=== PATIENT | female | born 1935 | race Caucasian/White ===

== ENCOUNTER 2016-08-28 11:19 | Outpatient (CLI) | payer MEDICARE, OTHER | END 2016-08-28 11:20 | disposition home or self-care (01) | DX: I48.91 Unspecified atrial fibrillation (principal) ==

== ENCOUNTER 2016-09-13 12:59 | Outpatient (CLI) | payer MEDICARE, OTHER | END 2016-09-13 13:00 | disposition home or self-care (01) | DX: I48.91 Unspecified atrial fibrillation (principal) ==

== ENCOUNTER 2016-09-28 11:25 | Outpatient (CLI) | payer MEDICARE, OTHER | END 2016-09-28 11:26 | disposition home or self-care (01) | DX: I48.91 Unspecified atrial fibrillation (principal) ==

== ENCOUNTER 2016-11-06 14:56 | Outpatient (CLI) | payer MEDICARE, OTHER | END 2016-11-06 14:57 | disposition home or self-care (01) | DX: I48.91 Unspecified atrial fibrillation (principal) ==

== ENCOUNTER 2016-11-29 09:37 | Outpatient (CLI) | payer MEDICARE, OTHER ==
--- NOTE | 2016-11-30 17:14 | Mammography Report ---
DIGITAL SCREENING MAMMOGRAM: 11/29/2016 CLINICAL INDICATION: An 81-year-old with history of benign left breast biopsy for screening. COMPARISON: 09/2015, 06/2014, 06/2013, 02/2011, 12/2009, 08/2008, 04/2007 TECHNIQUE: Routine CC and MLO projections were obtained of the breasts. FINDINGS: The breasts again demonstrate scattered fibroglandular densities bilaterally. Post biopsy changes in the left breast are stable. Coarse and punctate, typically benign calcifications are pre sent. No suspicious masses, clustered microcalcifications, or regions of architectural distortion ar e identified. IMPRESSION: BENIGN FINDINGS. RECOMMENDATION: Routine annual screening unless otherwise clinically indicated. BIRADS CATEGORY 2 - BENIGN FINDINGS. STANDARD QUALIFYING STATEMENTS 1. This examination was reviewed with the aid of Computer-Aided Detection (CAD). 2. A negative or benign imaging report should not delay biopsy if clinically suspicious findings are present. Consider surgical consultation if warranted. More than 5% of cancers are not identified by i maging. 3. Dense breasts may obscure an underlying neoplasm. JOB #: [id number] EXT JOB #:[id number]
== END 2016-11-29 09:38 | disposition home or self-care (01) ==
LOC: DI 09:37
PROVIDERS: ATTEND Nurse Practitioner Family
DX: Z12.31 Encounter for screening mammogram for malignant neoplasm of breast (principal)
CPT/HCPCS: 77067

== ENCOUNTER 2016-11-29 09:40 | Outpatient (CLI) | payer MEDICARE, OTHER ==
--- NOTE | 2016-11-29 15:19 | DEXA Report ---
DEXA SCAN: 11/29/2016 CLINICAL INDICATION: Postmenopausal. TECHNIQUE: Dual energy x-ray absorptiometry (DXA) was performed on a [employer] system. Regions measured are the AP spine, femoral neck, and, if needed, forearm. COMPARISON: None. In accordance with the International Society for Clinical Densitometry (ISCD) guidelines, data from previous exams may be reanalyzed using current recommendations and techniques. This is done to allow a more accurate basis for comparison with the current study. FINDINGS: The data for the lumbar spine is as follows: REGION BMD (g/cm/cm) T-SCORE Z-SCORE L1 1.452 2.7 3.9 L2 1.720 4.3 5.5 L3 1.964 6.4 7.6 L4 1.823 5.2 6.4 TOTAL 1.754 4.8 6.0 NOTE: All evaluable vertebrae are used for classification. The data for the hip is as follows: REGION BMD (g/cm/cm) T-SCORE Z-SCORE Neck 0.916 -0.9 0.9 TOTAL 1.026 0.1 1.8 NOTE: The femoral neck or total proximal femur, whichever is lowest, is used for classification. * Denotes significant change at the 95% confidence level. Denotes dissimilar scan types or analysis methods . IMPRESSION: THE WHO CLASSIFICATION BASED ON THE INTERNATIONAL REFERENCE STANDARD IS NORMAL. THE FRACTURE RISK IS NOT INCREASED. RECOMMENDATION: Patients with diagnosis of osteoporosis or osteopenia should have regular bone mineral density assessment. For those eligible for Medicare, routine testing is allowed once every 2 years. Testing frequency can be increased for patients who have rapidly progressing disease or for those who are receiving medical therapy to restore bone mass. COMMENT: World Health Organization (WHO) definitions for osteoporosis and osteopenia: NORMAL BMD: T-score at -1.0 or higher, fracture risk is low. OSTEOPENIA BMD: T-score between -1.0 and -2.5, fracture risk is increased. OSTEOPOROSIS BMD: T-score at -2.5 or lower, fracture risk high. National Osteoporosis Foundation recommends: 1. Obtain adequate dietary calcium (at least 1200 mg per day) and vitamin D (400 -800 international units per day). 2. Participate, as appropriate, in regular weightbearing and muscle- strengthening exercise. 3. Avoid tobacco use and reduce alcohol and caffeine intake. 4. For more detailed information see the website at www.NOF.org. MTDD
== END 2016-11-29 09:41 | disposition home or self-care (01) ==
LOC: DI 09:40
PROVIDERS: ATTEND Nurse Practitioner Family
DX: N95.8 Other specified menopausal and perimenopausal disorders (principal)
CPT/HCPCS: 77080

== ENCOUNTER 2016-12-18 14:59 | Outpatient (CLI) | payer MEDICARE, OTHER | END 2016-12-18 15:00 | disposition home or self-care (01) | LOC: LAB.F 14:59 | PROVIDERS: ATTEND Family Medicine | DX: I48.91 Unspecified atrial fibrillation (principal) | CPT/HCPCS: 85610 ==

== ENCOUNTER 2016-12-21 11:25 | Outpatient (CLI) | payer MEDICARE, OTHER | END 2016-12-21 11:26 | disposition home or self-care (01) | LOC: LAB.F 11:25 | PROVIDERS: ATTEND Family Medicine | DX: I48.91 Unspecified atrial fibrillation (principal) | CPT/HCPCS: 85610 ==

== ENCOUNTER 2017-01-01 14:45 | Outpatient (CLI) | payer MEDICARE, OTHER | END 2017-01-01 14:46 | disposition home or self-care (01) | LOC: LAB.F 14:45 | PROVIDERS: ATTEND Family Medicine | DX: I48.91 Unspecified atrial fibrillation (principal) | CPT/HCPCS: 85610 ==

== ENCOUNTER 2017-01-14 11:13 | Outpatient (CLI) | payer MEDICARE, OTHER | END 2017-01-14 11:14 | disposition home or self-care (01) | LOC: LAB.F 11:13 | PROVIDERS: ATTEND Family Medicine | DX: I48.91 Unspecified atrial fibrillation (principal) | CPT/HCPCS: 85610 ==

== ENCOUNTER 2017-01-24 08:00 | Outpatient (CLI) | payer MEDICARE, OTHER | END 2017-01-24 08:01 | LOC: LAB.F 08:00 | PROVIDERS: ATTEND Family Medicine | DX: I48.91 Unspecified atrial fibrillation (principal) | CPT/HCPCS: 85610 ==

== ENCOUNTER 2017-02-14 10:04 | Outpatient (CLI) | payer MEDICARE, OTHER ==
[2017-02-14 18:21] LABS: ALBUMIN/GLOBULIN RATIO 1.3 (1.0-2.2); BILIRUBIN,TOTAL 0.5 mg/dL (0.2-1.0); BUN - BLOOD UREA NITROGEN 28 mg/dL (6-20); CALCIUM 9.4 mg/dL (8.5-10.3); CARBON DIOXIDE - CO2 25 mmol/L (21-32); CHLORIDE 104 mmol/L (101-111); CHOL/HDL RATIO 3.1 (<4.4); CHOLESTEROL 118 mg/dL; GFR - MDRD 53 (>89); GLUCOSE 129 mg/dL (70-100); HDL CHOLESTEROL 38 mg/dL; LDL/HDL RATIO 1.3 (<4.4); POTASSIUM 4.1 mmol/L (3.5-5.0); SODIUM 138 mmol/L (135-145); TRIGLYCERIDES 148 mg/dL; VLDL CHOLESTEROL 30 mg/dL
== END 2017-02-14 10:05 | disposition home or self-care (01) ==
LOC: LAB.F 10:04
PROVIDERS: ATTEND Internal Medicine Cardiovascular Disease
DX: I48.91 Unspecified atrial fibrillation (principal); E78.00 Pure hypercholesterolemia, unspecified; R00.2 Palpitations; I48.0 Paroxysmal atrial fibrillation; I11.9 Hypertensive heart disease without heart failure; I77.9 Disorder of arteries and arterioles, unspecified; G47.33 Obstructive sleep apnea (adult) (pediatric)
CPT/HCPCS: 36415; 80053; 80061; 85610

== ENCOUNTER 2017-02-14 15:21 | Outpatient (CLI) | payer MEDICARE, OTHER ==
--- NOTE | 2017-02-14 18:18 | Ultrasound Report ---
EXAM: CAROTID DOPPLER ULTRASOUND EXAM DATE: 02/14/2017 05:01 PM. CLINICAL HISTORY: Known carotid artery disease. No current symptoms. COMPARISON: 08/18/2011. TECHNIQUE: Real-time sonographic vascular imaging was performed by the bench molder apprentice through the [employer] d arterial system with a linear transducer utilizing color-flow, Doppler flow and spectral analysis. Multiple textile machinery sales representative static images were saved for review. FINDINGS: No focal soft tissue abnormalities are noted. Both vertebral arteries are antegrade in flow. Limited evaluation of the carotid arteries due to high bifurcation bilaterally. Atheromatous calcified and noncalcified plaques are present in the right carotid bulb and extending i nto the proximal right internal carotid artery. Elevated velocities with mild spectral broadening is noted in the proximal right internal carotid artery. The velocity measurements suggest a stenosis of 50-69%. Right carotid artery is ectatic distally. Atheromatous calcified and noncalcified plaques are present in the left carotid bulb and extending in to the proximal left internal carotid artery. Atheromatous disease is also present in the distal left common carotid artery. Focal narrowing and turbulent flow with spectral broadening is noted with sig nificantly elevated velocities at the proximal left internal carotid artery just beyond the bulb. The combination of findings suggests a stenosis of greater than 70%. Spectral waveform analysis as below. Right: RCCA Prox: PSV 78 cm/sec. RCCA Dist: PSV 67 cm/sec, EDV 8 cm/sec. RECA: PSV 169 cm/sec. R Bulb: PSV 132 cm/sec, EDV 26 cm/sec, ICA/CCA ratio 1.97 . MICKY Prox: PSV 185 cm/sec, EDV 23 cm/sec, ICA/CCA ratio 2.8 . MICKY Mid: PSV 114 cm/sec, EDV 19 cm/sec, ICA/CCA ratio 1.70 . MICKY Dist: PSV 69 cm/sec, EDV 14 cm/sec, ICA/CCA ratio 1.03 . RVA: PSV 80 cm/sec. RVA flow direction: Antegrade. Left: LCCA Prox: PSV 99 cm/sec. LCCA Dist: PSV 101 cm/sec, EDV 20 cm/sec. LECA: PSV 99 cm/sec. L Bulb: PSV 116 cm/sec, EDV 25 cm/sec, ICA/CCA ratio 1.15 . LICA Prox: PSV 329 cm/sec, EDV 96 cm/sec, ICA/CCA ratio 3.26 . LICA Mid: PSV 207 cm/sec, EDV 53 cm/sec, ICA/CCA ratio 2.05 . LICA Dist: PSV 142 cm/sec, EDV 32 cm/sec, ICA/CCA ratio 1.41 . LVA: PSV 72 cm/sec. LVA flow direction: Antegrade. Other: None. IMPRESSION: 1. Stenosis of greater than 70% in the proximal left internal carotid artery. 2. 50-69% stenosis in the right proximal internal carotid artery. Velocities may be elevated due to t he stenosis of the left carotid system. This may result in overestimation of stenosis of the right in ternal carotid artery. 3. Both vertebral arteries are antegrade in flow. Validated velocity measurements with angiographic measurements and velocity criteria are extrapolated from diameter data as defined by the Society of Radiologists in Ultrasound Consensus Conference Radi ology 2003; 229;340-346. [facility] Referring Provider Line: [phone] SITE ID: [id number]
== END 2017-02-14 15:22 | disposition home or self-care (01) ==
LOC: DI 15:21
PROVIDERS: ATTEND Internal Medicine Cardiovascular Disease
DX: I65.23 Occlusion and stenosis of bilateral carotid arteries (principal); R00.2 Palpitations; I48.0 Paroxysmal atrial fibrillation; I11.9 Hypertensive heart disease without heart failure; I77.9 Disorder of arteries and arterioles, unspecified; E78.00 Pure hypercholesterolemia, unspecified; G47.33 Obstructive sleep apnea (adult) (pediatric)
CPT/HCPCS: 36415; 80053; 80061; 93880

== ENCOUNTER 2017-02-25 08:00 | Outpatient (CLI) | payer MEDICARE, OTHER | END 2017-02-25 08:01 | disposition home or self-care (01) | LOC: LAB.F 08:00 | PROVIDERS: ATTEND Family Medicine | DX: I48.91 Unspecified atrial fibrillation (principal) | CPT/HCPCS: 85610 ==

== ENCOUNTER 2017-03-19 14:30 | Outpatient (CLI) | payer MEDICARE, OTHER | END 2017-03-19 14:31 | disposition home or self-care (01) | LOC: LAB.F 14:30 | PROVIDERS: ATTEND Family Medicine | DX: I48.91 Unspecified atrial fibrillation (principal) | CPT/HCPCS: 85610 ==

== ENCOUNTER 2017-04-17 14:07 | Outpatient (CLI) | payer MEDICARE, OTHER | END 2017-04-17 14:08 | disposition home or self-care (01) | LOC: LAB.F 14:07 | PROVIDERS: ATTEND Family Medicine | DX: I48.91 Unspecified atrial fibrillation (principal) | CPT/HCPCS: 85610 ==

== ENCOUNTER 2017-05-31 08:00 | Outpatient (CLI) | payer MEDICARE, OTHER | END 2017-05-31 08:01 | disposition home or self-care (01) | LOC: LAB.F 08:00 | PROVIDERS: ATTEND Family Medicine | DX: I48.91 Unspecified atrial fibrillation (principal) | CPT/HCPCS: 85610 ==

== ENCOUNTER 2017-08-13 14:31 | Outpatient (CLI) | payer MEDICARE, OTHER | END 2017-08-13 14:32 | disposition home or self-care (01) | LOC: LAB.F 14:31 | PROVIDERS: ATTEND Family Medicine | DX: I48.91 Unspecified atrial fibrillation (principal) | CPT/HCPCS: 85610 ==

== ENCOUNTER 2017-09-17 15:57 | Outpatient (CLI) | payer MEDICARE, OTHER | END 2017-09-17 15:58 | disposition home or self-care (01) | LOC: LAB.F 15:57 | PROVIDERS: ATTEND Family Medicine | DX: I48.91 Unspecified atrial fibrillation (principal) | CPT/HCPCS: 85610 ==

== ENCOUNTER 2017-10-09 13:36 | Outpatient (CLI) | payer MEDICARE, OTHER | END 2017-10-09 13:37 | disposition home or self-care (01) | LOC: LAB.F 13:36 | PROVIDERS: ATTEND Family Medicine | DX: I48.91 Unspecified atrial fibrillation (principal) | CPT/HCPCS: 85610 ==

== ENCOUNTER 2017-11-05 14:20 | Outpatient (CLI) | payer MEDICARE, OTHER | END 2017-11-05 14:21 | disposition home or self-care (01) | LOC: LAB.F 14:20 | PROVIDERS: ATTEND Family Medicine | DX: I48.91 Unspecified atrial fibrillation (principal) | CPT/HCPCS: 85610 ==

== ENCOUNTER 2017-12-11 13:37 | Outpatient (CLI) | payer MEDICARE, OTHER | END 2017-12-11 13:38 | disposition home or self-care (01) | LOC: LAB.F 13:37 | PROVIDERS: ATTEND Family Medicine | DX: I48.91 Unspecified atrial fibrillation (principal) | CPT/HCPCS: 85610 ==

== ENCOUNTER 2017-12-27 08:45 | Outpatient (CLI) | payer MEDICARE, OTHER | END 2017-12-27 08:46 | disposition home or self-care (01) | LOC: LAB.F 08:45 | PROVIDERS: ATTEND Family Medicine | DX: I48.91 Unspecified atrial fibrillation (principal) | CPT/HCPCS: 85610 ==

== ENCOUNTER 2018-01-01 09:59 | Outpatient (CLI) | payer MEDICARE, OTHER ==
--- NOTE | 2018-01-03 15:18 | Mammography Report ---
Procedure Date: 01/01/2018 Accession Number: [id number] / [id number] Procedure: MGS - Screening Mammo Dig Bilat CPT Code: FULL RESULT: EXAM: Screening Mammo Dig Bilat DATE: 01/01/2018 10:17 AM CLINICAL HISTORY: 82-year-old with history of benign cyst excision for screening TECHNIQUE: Bilateral CC and MLO views were obtained. COMPARISON: 11/29/2016, 10/14/2015, 07/19/2014, 06/30/2013, 02/19/2011, 01/16/2010 FINDINGS: The breasts demonstrate scattered fibroglandular densities bilaterally. Coarse and punctate, typically benign calcifications are present. No suspicious masses, clustered microcalcifications, or regions of architectural distortion are identified. IMPRESSION: Benign findings RECOMMENDATION: Routine annual screening unless otherwise clinically indicated. BIRADS CATEGORY 2: Benign findings STANDARD QUALIFYING STATEMENTS: 1. This examination was reviewed with the aid of Computer-Aided Detection (CAD). 2. A negative or benign imaging report should not delay biopsy if clinically suspicious findings are present. Consider surgical consultation if warrented. More than 5% of cancers are not identified by imaging. 3. Dense breasts may obscure an underlying neoplasm.
== END 2018-01-01 10:00 | disposition home or self-care (01) ==
LOC: DI.S 09:59
PROVIDERS: ATTEND Family Medicine
DX: Z12.31 Encounter for screening mammogram for malignant neoplasm of breast (principal)
CPT/HCPCS: 77067

== ENCOUNTER 2018-01-10 10:15 | Outpatient (CLI) | END 2018-01-10 10:16 | disposition home or self-care (01) ==

== ENCOUNTER 2018-01-14 14:06 | Outpatient (CLI) | payer MEDICARE, OTHER ==
[2018-01-14 17:32] LABS: INR 1.8 (0.8-1.2); PT - PROTHROMBIN TIME 20.3 secs (9.9-12.6)
[2018-01-14 17:50] LABS: BASOPHILS # (AUTO) 0.1 10^3/uL (0.0-0.1); BASOPHILS % (AUTO) 1.1 %; EOSINOPHILS # (AUTO) 0.1 10^3/uL (0.0-0.7); EOSINOPHILS % (AUTO) 1.5 %; HGB - HEMOGLOBIN 11.3 g/dL (12.0-16.0); LYMPHOCYTES # (AUTO) 1.6 10^3/uL (1.5-3.5); LYMPHOCYTES % (AUTO) 18.4 %; MEAN CORPUSCULAR HEMOGLOBIN 24.3 pg (27.0-31.0); MEAN CORPUSCULAR HGB CONC 31.5 g/dL (32.0-36.0); MEAN PLATELET VOLUME 9.2 fL (7.9-10.8); MONOCYTES # (AUTO) 0.5 10^3/uL (0.0-1.0); MONOCYTES % (AUTO) 5.4 %; NEUTROPHILS # (AUTO) 6.3 10^3/uL (1.5-6.6); NEUTROPHILS % (AUTO) 73.6 %; PLT - PLATELET COUNT 266 10^3/uL (130-450); RED BLOOD COUNT 4.65 10^6/uL (4.20-5.40); RED CELL DISTRIBUTION WIDTH 29.7 % (12.0-15.0); WHITE BLOOD COUNT 8.6 x10^3/uL (4.8-10.8)
[2018-01-14 18:03] LABS: % IRON SATURATION 8 % (20-50); IRON 30 ug/dL (28-170); TOTAL IRON BINDING CAPACITY 368 ug/dL (250-450); TRANSFERRIN 263 mg/dL (192-382)
[2018-01-14 19:30] LABS: PLATELET ESTIMATE, MANUAL NORMAL (130-450,000) (NORMAL); PLATELET MORPHOLOGY 1+ LARGE PLATELETS (NORMAL)
== END 2018-01-14 14:07 | disposition home or self-care (01) ==
LOC: LAB.F 14:06
PROVIDERS: ATTEND Family Medicine
DX: D64.9 Anemia, unspecified (principal); Z79.01 Long term (current) use of anticoagulants
CPT/HCPCS: 36415; 82728; 83540; 84466; 85025; 85610

== ENCOUNTER 2018-02-07 14:59 | Outpatient (CLI) | payer MEDICARE, OTHER | END 2018-02-07 15:00 | disposition home or self-care (01) | LOC: LAB.F 14:59 | PROVIDERS: ATTEND Family Medicine | DX: I48.91 Unspecified atrial fibrillation (principal) | CPT/HCPCS: 85610 ==

== ENCOUNTER 2018-02-21 15:27 | Outpatient (CLI) | payer MEDICARE, OTHER ==
[2018-02-21 17:32] LABS: BASOPHILS # (AUTO) 0.1 10^3/uL (0.0-0.1); BASOPHILS % (AUTO) 1.1 %; EOSINOPHILS # (AUTO) 0.1 10^3/uL (0.0-0.7); EOSINOPHILS % (AUTO) 1.1 %; HGB - HEMOGLOBIN 12.4 g/dL (12.0-16.0); LYMPHOCYTES # (AUTO) 1.2 10^3/uL (1.5-3.5); LYMPHOCYTES % (AUTO) 19.1 %; MEAN CORPUSCULAR HEMOGLOBIN 27.1 pg (27.0-31.0); MEAN CORPUSCULAR HGB CONC 32.9 g/dL (32.0-36.0); MEAN CORPUSCULAR VOLUME 82.5 fL (81.0-99.0); MONOCYTES # (AUTO) 0.4 10^3/uL (0.0-1.0); MONOCYTES % (AUTO) 5.8 %; NEUTROPHILS # (AUTO) 4.6 10^3/uL (1.5-6.6); NEUTROPHILS % (AUTO) 72.9 %; PLT - PLATELET COUNT 247 10^3/uL (130-450); RED BLOOD COUNT 4.57 10^6/uL (4.20-5.40); RED CELL DISTRIBUTION WIDTH 22.4 % (12.0-15.0); WHITE BLOOD COUNT 6.3 x10^3/uL (4.8-10.8)
[2018-02-21 18:12] LABS: PLATELET ESTIMATE, MANUAL NORMAL (130-450,000) (NORMAL); PLATELET MORPHOLOGY NORMAL APPEARANCE (NORMAL); RBC MORPHOLOGY (MULTIPLE) 2+ ANISOCYTOSIS (NORMAL)
== END 2018-02-21 15:28 | disposition home or self-care (01) ==
LOC: LAB.F 15:27
PROVIDERS: ATTEND Internal Medicine
DX: D64.9 Anemia, unspecified (principal); D50.9 Iron deficiency anemia, unspecified; I48.91 Unspecified atrial fibrillation; I12.9 Hypertensive chronic kidney disease with stage 1 through stage 4 chronic kidney disease, or unspecified chronic kidney disease; N18.9 Chronic kidney disease, unspecified; E78.5 Hyperlipidemia, unspecified
CPT/HCPCS: 36415; 80051; 82728; 83540; 84466; 85025; 85610

== ENCOUNTER 2018-02-27 08:50 | Day surgery (SDC) | payer MEDICARE, OTHER ==
[~2018-02-27 08:50] MED LIST: MIDAZOLAM 2 MG/2 ML VIAL IVP ONE
[2018-02-27] MEDS ORDERED: CYCLOPENTOLATE 1% OPHTH DROPS 2 ML ONE (09:00)
[2018-02-27] MEDS ORDERED: KETOROLAC 0.45% OPHTH DROPS ONE (09:00)
[2018-02-27] MEDS ORDERED: PROPARACAINE 0.5% OPHTH DROPS 15 ML ONE (09:00)
[2018-02-27] MEDS ORDERED: PHENYLEPHRINE 2.5% OPHTH 2 ML DROPS ONE (09:00)
[2018-02-27] MEDS ORDERED: LACTATED RINGERS 500 ML IV ONE ×2 (09:08→10:50)
[2018-02-27] MEDS ORDERED: LACTATED RINGERS 1,000 ML IV ONE (09:08)
[2018-02-27] MEDS ORDERED: KETOROLAC 0.45% OPHTH DROPS RIGHTEYE ONE (09:29)
[2018-02-27] MEDS ORDERED: CYCLOPENTOLATE 1% OPHTH DROPS 2 ML RIGHTEYE ONE (09:29)
[2018-02-27] MEDS ORDERED: PROPARACAINE 0.5% OPHTH DROPS 15 ML RIGHTEYE ONE ×2 (09:29→10:41)
[2018-02-27] MEDS ORDERED: PHENYLEPHRINE 2.5% OPHTH 2 ML DROPS RIGHTEYE ONE (09:29)
--- NOTE | 2018-02-27 09:49 | ANESTHESIA ---
Pre-Anesthesia VS, & Labs - Diagnosis senile combined cataract, right - Procedure Right cataract extraction with intraocular lens Vital Signs: Temp Pulse Resp BP Pulse Ox 36.3 C L 16 157/69 H 99 02/27/18 09:20 02/27/18 09:20 02/27/18 09:20 02/27/18 09:20 Height 5 ft 5 in Weight (kg) 85.1 kg - NPO Last Fluid Intake: 715 Last Food Intake: none today - Is Patient ?: Not Applicable Home Medications and Allergies Home Medications: Ambulatory Orders Medication Instructions Recorded Confirmed Aspirin [Adult Aspirin] 81 mg PO DAILY 02/26/18 02/26/18 Atorvastatin [Lipitor] mg PO DAILY 02/26/18 Diclofenac Sodium [Voltaren] 1 02/26/18 Esomeprazole Magnesium [Nexium] mg PO DAILY 02/26/18 Furosemide [Lasix] mg PO DAILY 02/26/18 HYDROcod/ACETAM 5/325 [[place] 5/325] tab PO DAILY PRN 02/26/18 Lisinopril mg PO DAILY 02/26/18 Metoprolol Succinate mg PO DAILY 02/26/18 Warfarin [Coumadin] mg PO DAILY 02/26/18 Zolpidem [Ambien] mg PO DAILY PRN 02/26/18 diltiaZEM [Cardizem] mg PO DAILY 02/26/18 Allergies/Adverse Reactions: Allergies Allergy/AdvReac Type Severity Reaction Status Date / Time No Known Drug Allergies Allergy Verified 02/26/18 13:24 Anes History & Medical History - Anesthetic History Anesthesia Complications: reports: Post-Operative Nausea/Vomiting - Medical History Cardiovascular: reports: Hypertension, High cholesterol, Atrial fibrillation, Other. denies: Angina Pulmonary: reports: None Gastrointestinal: reports: GERD, GI bleed, Ulcers, Diverticulitis, Cholelithiasis Urinary: reports: Renal insuffiency, Other Neuro: denies: CVA Musculoskeletal: reports: Osteoarthritis, Fibromyalgia, Chronic back pain Endocrine/Autoimmune: reports: None - Surgical History General: Cholecystectomy, Other Gynecologic: Hysterectomy Orthopedic: Other (hand surgery) Exam General: Alert Dental: WNL Mouth Openin Fingerbreadth Neck Mobility: Reduced Mallampati classification: II Thyromental Distance: greater than 6 cm Respiratory: Lungs clear Cardiovascular: Regular rate, Normal S1, Normal S2 Neurological: Other (ambulates with walker) Mental/Cognitive Status: Alert/Oriented X3 Cognitive Status: Within normal limits Plan Anesthesia Type: MAC Consent for Procedure(s) Verified and Reviewed: No Code Status: Attempt Resuscitation ASA classification: 3-Severe systemic disease Is this case an emergency?: No
[2018-02-27] MEDS ORDERED: BRIMONIDINE 0.2% OPHTH DROPS 5 ML OPTH ONE (10:39)
[2018-02-27] MEDS ORDERED: EPINEPHrine 1 MG/ML AMP IVP ONE (10:39)
[2018-02-27] MEDS ORDERED: CHONDR SULF/HYALURONATE SYRINGE IO ONE (10:40)
[2018-02-27] MEDS ORDERED: TIMOLOL 0.5% OPHTH DROPS OPTH ONE (10:40)
[2018-02-27] MEDS ORDERED: TRIAMCIN/MOXIFLOX/VANCO 1 ML VIAL IO ONE (10:40)
[2018-02-27] MEDS ORDERED: BSS/LIDOCAINE/EPINEPHRINE 1 ML SYRINGE IO ONE (10:40)
--- NOTE | 2018-02-27 11:05 | OPERATIVE REPORT ---
DATE OF SERVICE: 02/27/2018 Physician: Vishal Ya MD PREOPERATIVE DIAGNOSIS: Visually significant cataract, right eye. This was her first cataract surge ry. POSTOPERATIVE DIAGNOSIS: Visually significant cataract, right eye. This was her first cataract surg ginny. NAME OF PROCEDURE: Phacoemulsification with posterior chamber intraocular lens implant, right eye. SURGEON: Vishal Ya MD ANESTHESIA: Monitored anesthesia care. COMPLICATIONS: None. OPERATIVE INDICATIONS: This is an 83-year-old woman with progressive vision loss in the right eye du e to 2+ nuclear sclerotic, 2+ cortical and vacuole cataract. Best corrected visual acuity was 20/40, with glare to 20/80 in the right eye. Indications for surgery were overall decrease in vision, difficulty reading, difficulty seeing words, closed captions and games scores on TV. She was consented at length concerning risks and benefits o f cataract surgery, after which she expressed a desire to proceed with surgery. OPERATIVE PROCEDURE: The patient was taken to the OR #3 and placed under monitored anesthesia care. A surgical timeout was conducted confirming correct patient, correct procedure, and correct surgical site. She was given topical anesthesia, and then prepped and draped in the usual sterile fashion. The eye was entered at the 12 and 9 o'clock position. Intracameral Shugarcaine was injected into the anterior chamber, followed by Viscoat. A continuous-tear curvilinear capsulorrhexis was performed. The nucleus was hydrodissected and phacoemulsified. The cortex was evacuated using automated infusi on and aspiration. Provisc was injected in the capsular bag, and a 21.0 diopter intraocular lens ins erted in the bag. Approximately 0.8 mixture of triamcinolone, moxifloxacin, and vancomycin was injec ashley subconjunctivally in the superior quadrant for infection and inflammation prophylaxis. I and A w as used to evacuate the viscoelastic material. His eye was inflated to physiologic pressure using ba lanced salt solution, and found to be watertight. The patient was taken from the operating room in g ood condition, and given postop instructions. TD: 02/27/2018 10:58
[2018-02-27 11:17] VITALS: BP 136/46
== END 2018-02-27 08:51 | disposition home or self-care (01) ==
LOC: SDS 08:50
PROVIDERS: ATTEND Ophthalmology
PROC: 08RJ3JZ Replacement of Right Lens with Synthetic Substitute, Percutaneous Approach (ICD-10-PCS; principal; 2018-02-27 10:30)
DX: H25.811 Combined forms of age-related cataract, right eye (principal); I48.91 Unspecified atrial fibrillation; I10 Essential (primary) hypertension
CPT/HCPCS: 66984; A9270; J3490; V2632

== ENCOUNTER 2018-03-11 13:36 | Outpatient (CLI) | payer MEDICARE, OTHER | END 2018-03-11 13:37 | disposition home or self-care (01) | LOC: LAB.F 13:36 | PROVIDERS: ATTEND Family Medicine | DX: I48.91 Unspecified atrial fibrillation (principal) | CPT/HCPCS: 85610 ==

== ENCOUNTER 2018-04-02 15:58 | Outpatient (CLI) | payer MEDICARE, OTHER | END 2018-04-02 15:59 | disposition home or self-care (01) | LOC: LAB.F 15:58 | PROVIDERS: ATTEND Family Medicine | DX: I48.91 Unspecified atrial fibrillation (principal) | CPT/HCPCS: 85610 ==

== ENCOUNTER 2018-05-14 14:31 | Outpatient (CLI) | payer MEDICARE, OTHER | END 2018-05-14 14:32 | disposition home or self-care (01) | LOC: LAB.F 14:31 | PROVIDERS: ATTEND Family Medicine | DX: I48.91 Unspecified atrial fibrillation (principal) | CPT/HCPCS: 85610 ==

== ENCOUNTER 2018-05-27 14:23 | Outpatient (CLI) | payer MEDICARE, OTHER ==
[2018-05-27 17:45] LABS: BASOPHILS % (AUTO) 0.6 %; EOSINOPHILS # (AUTO) 0.1 10^3/uL (0.0-0.7); LYMPHOCYTES # (AUTO) 1.6 10^3/uL (1.5-3.5); LYMPHOCYTES % (AUTO) 21.3 %; MEAN CORPUSCULAR HEMOGLOBIN 29.4 pg (27.0-31.0); MEAN CORPUSCULAR HGB CONC 33.5 g/dL (32.0-36.0); MEAN CORPUSCULAR VOLUME 87.8 fL (81.0-99.0); MEAN PLATELET VOLUME 9.1 fL (7.9-10.8); MONOCYTES # (AUTO) 0.7 10^3/uL (0.0-1.0); MONOCYTES % (AUTO) 8.6 %; NEUTROPHILS # (AUTO) 5.3 10^3/uL (1.5-6.6); NEUTROPHILS % (AUTO) 68.5 %; PLT - PLATELET COUNT 223 10^3/uL (130-450); RED BLOOD COUNT 4.75 10^6/uL (4.20-5.40); RED CELL DISTRIBUTION WIDTH 15.2 % (12.0-15.0); WHITE BLOOD COUNT 7.7 x10^3/uL (4.8-10.8)
[2018-05-27 18:23] LABS: CALCIUM 9.4 mg/dL (8.5-10.3); CREATININE 0.9 mg/dL (0.4-1.0)
== END 2018-05-27 14:24 | disposition home or self-care (01) ==
LOC: LAB.F 14:23
PROVIDERS: ATTEND Internal Medicine Cardiovascular Disease
DX: I48.0 Paroxysmal atrial fibrillation (principal)
CPT/HCPCS: 36415; 80048; 85025

== ENCOUNTER 2018-06-19 10:39 | Outpatient (CLI) | payer MEDICARE, OTHER ==
[2018-06-19 18:06] LABS: CALCIUM 9.4 mg/dL (8.5-10.3); CREATININE 0.8 mg/dL (0.4-1.0)
== END 2018-06-19 10:40 | disposition home or self-care (01) ==
LOC: LAB.F 10:39
PROVIDERS: ATTEND Family Medicine
DX: I48.91 Unspecified atrial fibrillation (principal); I10 Essential (primary) hypertension
CPT/HCPCS: 36415; 80048; 85610

== ENCOUNTER 2018-07-28 13:56 | Outpatient (CLI) | payer MEDICARE, OTHER | END 2018-07-28 13:57 | disposition home or self-care (01) | LOC: LAB.F 13:56 | PROVIDERS: ATTEND Family Medicine | DX: I48.91 Unspecified atrial fibrillation (principal) | CPT/HCPCS: 85610 ==

== ENCOUNTER 2018-10-23 14:00 | Emergency (ER) | payer MEDICARE, OTHER ==
[2018-10-23] MEDS ORDERED: IPRATROPIUM/ALBUTEROL 3 ML NEB INH STA (14:25)
[2018-10-23] MEDS ORDERED: methylPREDNISolone SUCCINATE 125 MG/2 ML VIAL IVP STA (14:25)
--- NOTE | 2018-10-23 14:32 | ED Physician Documentation ---
PD HPI DYSPNEA - Stated complaint Stated Complaint: SOA/COUGH - Chief complaint Chief Complaint: Resp - History obtained from History obtained from: Patient - History of Present Illness Timing - onset: How many days ago (3) Timing - onset during: Rest Timing - duration: Days (3) Timing - details: Gradual onset Pain level max: 0 Pain level now: 0 Inciting event(s): URI Improved by: Rest Worsened by: Exertion, Coughing Associated symptoms: Cough, Wheezing. No: Fever, Chest pain / discomfort, Palpitations, Diaphoresis, Bilateral edema Similar symptoms before: Diagnosis (clinical pneumonia yesterday) Recently seen: Clinic (clinic yesterday for same, started on azithromycin.) Review of Systems Ten Systems: 10 systems reviewed and negative Constitutional: denies: Fever Nose: reports: Rhinorrhea / runny nose, Congestion Cardiac: denies: Chest pain / pressure Respiratory: reports: Cough GI: denies: Vomiting, Diarrhea Skin: denies: Rash Musculoskeletal: denies: Neck pain, Back pain Neurologic: denies: Headache PD PAST MEDICAL HISTORY - Past Medical History Past Medical History: Yes Cardiovascular: Hypertension, Atrial fibrillation Respiratory: Asthma - Present Medications Home Medications: Ambulatory Orders Medication Instructions Recorded Confirmed Aspirin [Adult Aspirin] 81 mg PO DAILY 02/26/18 02/26/18 Atorvastatin [Lipitor] 10 mg PO DAILY 02/26/18 02/27/18 Diclofenac Sodium [Voltaren] 1 gm PO DAILY 02/26/18 02/27/18 Esomeprazole Magnesium [Nexium] 20 mg PO DAILY 02/26/18 02/27/18 Furosemide [Lasix] 20 mg PO DAILY 02/26/18 02/27/18 HYDROcod/ACETAM 5/325 [[place] 5/325] 5 mg PO DAILY PRN 02/26/18 02/27/18 Lisinopril 10 mg PO DAILY 02/26/18 02/27/18 Metoprolol Succinate 25 mg PO DAILY 02/26/18 02/27/18 Warfarin [Coumadin] 5 mg PO DAILY 02/26/18 02/27/18 Zolpidem [Ambien] mg PO DAILY PRN 02/26/18 diltiaZEM [Cardizem] mg PO DAILY 02/26/18 Albuterol Sulf [Ventolin Hfa 1 - 2 puffs INH Q4HR PRN #1 inhaler 10/23/18 Inhaler] predniSONE [Prednisone] 40 mg PO DAILY #10 tablet 10/23/18 - Allergies Allergies/Adverse Reactions: Allergies Allergy/AdvReac Type Severity Reaction Status Date / Time No Known Drug Allergies Allergy Verified 10/23/18 14:24 - Living Situation Living Situation: reports: With family Living Arrangement: reports: At home - Social History Does the pt drink ETOH?: No Does the pt have substance abuse?: No - Family History Family history: reports: Non contributory PD ED PE NORMAL - Vitals Vital signs reviewed: Yes - General General: Alert and oriented X 3, No acute distress, Well developed/nourished - HEENT HEENT: PERRL, Moist mucous membranes - Neck Neck: Supple, no meningeal sign - Cardiac Cardiac: RRR - Respiratory Respiratory: No respiratory distress, Other (Very diminished breath sounds bilaterally with wheezing) - Abdomen Abdomen: Soft, Non tender, Non distended - Derm Derm: Warm and dry, No rash - Extremities Extremities: No edema, No calf tenderness / cord - Neuro Neuro: Alert and oriented X 3 - Psych Psych: Normal mood, Normal affect Results - Vitals Vitals: Vital Signs - 24 hr 10/23/18 10/23/18 10/23/18 14:20 14:27 14:35 Temperature 37.2 C Heart Rate 69 71 Respiratory 19 20 Rate Blood Pressure 173/73 H 161/63 H O2 Saturation 89 L 97 10/23/18 10/23/18 10/23/18 14:54 16:11 16:13 Temperature 37.2 C Heart Rate 66 78 76 Respiratory 14 21 18 Rate Blood Pressure 165/60 H O2 Saturation 98 10/23/18 17:03 Temperature Heart Rate 84 Respiratory 20 Rate Blood Pressure 131/86 H O2 Saturation 94 Oxygen O2 Source Room air - Labs Labs: Laboratory Tests 10/23/18 10/23/18 10/23/18 14:32 14:32 14:32 WBC 7.1 RBC 3.45 L Hgb 9.8 L Hct 28.9 L MCV 83.8 MCH 28.5 MCHC 34.0 RDW 14.8 Plt Count 216 MPV 8.1 Neut # (Auto) 5.7 Lymph # (Auto) 0.5 L Jerome # (Auto) 0.8 Eos # (Auto) 0.0 Baso # (Auto) 0.1 Absolute Nucleated RBC 0.00 Nucleated RBC % 0.0 PT INR Sodium 127 L Potassium 3.7 Chloride 94 L Carbon Dioxide 25 Anion Gap 8.0 BUN 20 Creatinine 0.8 Estimated GFR (MDRD) 69 L Glucose 153 H Lactic Acid 0.8 Calcium 8.6 Total Bilirubin 0.7 AST 37 ALT 23 Alkaline Phosphatase 62 Total Protein 6.6 L Albumin 3.4 Globulin 3.2 Albumin/Globulin Ratio 1.1 Lipase 47 10/23/18 14:32 WBC RBC Hgb Hct MCV MCH MCHC RDW Plt Count MPV Neut # (Auto) Lymph # (Auto) Jerome # (Auto) Eos # (Auto) Baso # (Auto) Absolute Nucleated RBC Nucleated RBC % PT 31.1 H INR 2.8 H Sodium Potassium Chloride Carbon Dioxide Anion Gap BUN Creatinine Estimated GFR (MDRD) Glucose Lactic Acid Calcium Total Bilirubin AST ALT Alkaline Phosphatase Total Protein Albumin Globulin Albumin/Globulin Ratio Lipase - Rads (name of study) cxr Radiology: Prelim report reviewed, EMP read contemporaneously, See rad report (No focal consolidation. ) PD MEDICAL DECISION MAKING - ED course Complexity details: reviewed results, re-evaluated patient, considered differential, d/w patient, d/w family ED course: 83-year-old female with what appears to be a viral upper respiratory infection. She is well-appearing, nontoxic. Was initially hypoxic, but resolved with steroids and nebulizer treatment. Has not been using albuterol at home. Will prescribe an inhaler for her. She does not want to stay in the hospital At this time. Her daughter will stay with her tonight. If she fails to improve or worsens, they will return for further care. We will have her finish the azithromycin that was started by her doctor. We will also prescribe steroids for home. Patient counseled regarding signs and symptoms for which I believe and urgent re-evaluation would be necessary. Patient with good understanding of and agreement to plan and is comfortable going home at this time This document was made in part using voice recognition software. While efforts are made to proofread this document, sound alike and grammatical errors may occur. Departure - Departure Disposition: 01 Home, Self Care Clinical Impression: Asthma exacerbation Qualifiers: Asthma severity: unspecified severity Asthma persistence: unspecified Qualified Code(s): J45.901 - Unspecified asthma with (acute) exacerbation Condition: Good Instructions: ED Reactive Airway Disease Follow-Up: ANGIE DAWKINS MD [Primary Care Provider] - Within 3 Days Prescriptions: Albuterol Sulf [Ventolin Hfa Inhaler] 1 - 2 puffs INH Q4HR PRN #1 inhaler PRN Reason: Shortness Of Air/Wheezing predniSONE [Prednisone] 40 mg PO DAILY #10 tablet Comments: Return if you worsen. This should improve over the next 24 hours. You can finish the antibiotics you started. Discharge Date/Time: 10/23/18 18:25
[2018-10-23 14:50] LABS: BASOPHILS # (AUTO) 0.1 10^3/uL (0.0-0.1); BASOPHILS % (AUTO) 1.1 %; EOSINOPHILS % (AUTO) 0.1 %; HGB - HEMOGLOBIN 9.8 g/dL (12.0-16.0); LYMPHOCYTES # (AUTO) 0.5 10^3/uL (1.5-3.5); LYMPHOCYTES % (AUTO) 7.2 %; MEAN CORPUSCULAR HEMOGLOBIN 28.5 pg (27.0-31.0); MEAN CORPUSCULAR VOLUME 83.8 fL (81.0-99.0); MEAN PLATELET VOLUME 8.1 fL (7.9-10.8); MONOCYTES # (AUTO) 0.8 10^3/uL (0.0-1.0); MONOCYTES % (AUTO) 11.7 %; NEUTROPHILS # (AUTO) 5.7 10^3/uL (1.5-6.6); NEUTROPHILS % (AUTO) 79.9 %; PLT - PLATELET COUNT 216 10^3/uL (130-450); RED BLOOD COUNT 3.45 10^6/uL (4.20-5.40); RED CELL DISTRIBUTION WIDTH 14.8 % (12.0-15.0); WHITE BLOOD COUNT 7.1 x10^3/uL (4.8-10.8)
[2018-10-23 14:57] LABS: ALBUMIN 3.4 g/dL (3.2-5.5); ALBUMIN/GLOBULIN RATIO 1.1 (1.0-2.2); BILIRUBIN,TOTAL 0.7 mg/dL (0.2-1.0); CALCIUM 8.6 mg/dL (8.5-10.3); CREATININE 0.8 mg/dL (0.4-1.0); TOTAL PROTEIN 6.6 g/dL (6.7-8.2)
--- NOTE | 2018-10-23 15:00 | XRAY Report ---
Reason: cough Procedure Date: 10/23/2018 Accession Number: [id number] / [id number] Procedure: XR - Chest 2 View X-Ray CPT Code: 25590 FULL RESULT: EXAM: CHEST RADIOGRAPHY EXAM DATE: 10/23/2018 02:46 PM. CLINICAL HISTORY: Cough. COMPARISON: XR CHEST PA AND LAT 06/21/2009 2:08 PM. TECHNIQUE: 2 views. FINDINGS: Lungs/Pleura: Increased interstitial markings with peribronchial cuffing. No focal consolidation. No pleural effusion. Mediastinum: Heart and mediastinal contours are unremarkable. Other: None. IMPRESSION: 1. No focal consolidation. 2. Increased interstitial markings with parabronchial cuffing are nonspecific but can be seen in the setting of reactive airways disease, bronchitis and viral infection. Findings are new from the prior examination. [facility]
[2018-10-23] MEDS ORDERED: SODIUM CHLORIDE 0.9% 1,000 ML IV ONE (15:14)
[2018-10-23 15:15] LABS: INR 2.8 (0.8-1.2); PT - PROTHROMBIN TIME 31.1 secs (9.9-12.6)
[2018-10-23] MEDS ORDERED: ALBUTEROL NEB 2.5 MG/3 ML INH STA (15:51)
[2018-10-23 17:16] VITALS: BP 131/86
== END 2018-10-23 18:25 | disposition home or self-care (01) ==
LOC: ED 14:00
DX: J45.901 Unspecified asthma with (acute) exacerbation (principal); I48.91 Unspecified atrial fibrillation; I10 Essential (primary) hypertension; Z79.01 Long term (current) use of anticoagulants
CPT/HCPCS: 36415; 71046; 80053; 83605; 83690; 85025; 85610; 94640; 96361; 96374; 99283; 99284

== ENCOUNTER 2018-11-20 15:03 | Outpatient (CLI) | payer MEDICARE, OTHER | END 2018-11-20 15:04 | disposition home or self-care (01) | LOC: LAB.F 15:03 | PROVIDERS: ATTEND Family Medicine | DX: I48.91 Unspecified atrial fibrillation (principal) | CPT/HCPCS: 85610 ==

== ENCOUNTER 2019-01-01 15:44 | Outpatient (CLI) | payer MEDICARE, OTHER | END 2019-01-01 15:45 | disposition home or self-care (01) | LOC: LAB.F 15:44 | PROVIDERS: ATTEND Internal Medicine | DX: I48.91 Unspecified atrial fibrillation (principal) | CPT/HCPCS: 85610 ==

== ENCOUNTER 2019-03-05 15:19 | Outpatient (CLI) | payer MEDICARE, OTHER | END 2019-03-05 15:20 | disposition home or self-care (01) | LOC: LAB.S 15:19 | PROVIDERS: ATTEND Internal Medicine Cardiovascular Disease | DX: I10 Essential (primary) hypertension (principal) | CPT/HCPCS: 36415; 80048 ==

== ENCOUNTER 2019-03-06 13:10 | Outpatient (CLI) | payer MEDICARE, OTHER ==
[2019-03-06 17:57] LABS: CALCIUM 9.4 mg/dL (8.5-10.3); CREATININE 1.1 mg/dL (0.4-1.0)
--- NOTE | 2019-03-09 11:54 | Mammography Report ---
Reason: SCREENING MAMMO, SELF REFERRED, Z12.31 Procedure Date: 03/06/2019 Accession Number: [id number] / [id number] Procedure: MGS - Screening Mammo Dig Bilat CPT Code: FULL RESULT: EXAM: Screening Mammo Dig Bilat DATE: 03/06/2019 1:41 PM CLINICAL HISTORY: Routine screening. No reported personal history of breast cancer. Family history of breast cancer in 2 aunts ages 30 and 84. TECHNIQUE: (B) - Bilateral CC and MLO views were obtained. COMPARISON: 01/01/2018 through 06/30/2013 PARENCHYMAL PATTERN: (A) - The breasts demonstrate scattered fibroglandular densities bilaterally. FINDINGS: Bilateral breasts: There are no suspicious masses, calcifications, or areas of distortion. IMPRESSION: Negative examination. BI-RADS category 1. RECOMMENDATION: (ANNUAL) - Recommend routine annual screening mammography. BI-RADS CATEGORY: (1) - Negative. STANDARD QUALIFYING STATEMENTS: 1. This examination was reviewed with the aid of Computer-Aided Detection (CAD). 2. A negative or benign imaging report should not preclude biopsy if clinically suspicious findings are present. 3. Dense breasts may obscure an underlying neoplasm. 4. This examination was reviewed without the aid of 3D breast imaging (tomosynthesis).
== END 2019-03-06 13:11 | disposition home or self-care (01) ==
LOC: DI.S 13:10
PROVIDERS: ATTEND Nurse Practitioner Family
DX: Z12.31 Encounter for screening mammogram for malignant neoplasm of breast (principal); Z80.3 Family history of malignant neoplasm of breast; I10 Essential (primary) hypertension
CPT/HCPCS: 36415; 77067; 80048

== ENCOUNTER 2019-04-10 12:56 | Outpatient (CLI) | payer MEDICARE, OTHER | END 2019-04-10 12:57 | disposition home or self-care (01) | LOC: LAB.S 12:56 | PROVIDERS: ATTEND Family Medicine | DX: I48.91 Unspecified atrial fibrillation (principal) | CPT/HCPCS: 85610 ==

== ENCOUNTER 2019-05-20 15:29 | Outpatient (CLI) | payer MEDICARE, OTHER | END 2019-05-20 15:30 | disposition home or self-care (01) | LOC: LAB.S 15:29 | PROVIDERS: ATTEND Family Medicine | DX: I48.91 Unspecified atrial fibrillation (principal) | CPT/HCPCS: 85610 ==

== ENCOUNTER 2019-06-10 08:29 | Outpatient (CLI) | payer MEDICARE, OTHER | END 2019-06-10 08:30 | disposition home or self-care (01) | LOC: MAC.DIA 08:29 | PROVIDERS: ATTEND Physician Assistant | DX: E11.65 Type 2 diabetes mellitus with hyperglycemia (principal); Z79.4 Long term (current) use of insulin; Z71.89 Other specified counseling; Z71.3 Dietary counseling and surveillance; Z68.34 Body mass index [BMI] 34.0-34.9, adult ==

== ENCOUNTER 2019-06-11 15:22 | Outpatient (CLI) | payer MEDICARE, OTHER | END 2019-06-11 15:23 | disposition home or self-care (01) | LOC: LAB.S 15:22 | PROVIDERS: ATTEND Family Medicine | DX: I48.91 Unspecified atrial fibrillation (principal) | CPT/HCPCS: 85610 ==

== ENCOUNTER 2019-06-26 13:38 | Outpatient (CLI) | payer MEDICARE, OTHER | END 2019-06-26 13:39 | disposition home or self-care (01) | LOC: LAB.S 13:38 | PROVIDERS: ATTEND Family Medicine | DX: I48.91 Unspecified atrial fibrillation (principal) | CPT/HCPCS: 85610 ==

== ENCOUNTER 2019-08-07 14:21 | Outpatient (CLI) | payer MEDICARE, OTHER | END 2019-08-07 14:22 | disposition home or self-care (01) | LOC: LAB.S 14:21 | PROVIDERS: ATTEND Family Medicine | DX: I48.91 Unspecified atrial fibrillation (principal) | CPT/HCPCS: 85610 ==

== ENCOUNTER 2019-09-02 14:23 | Outpatient (CLI) | payer MEDICARE, OTHER ==
[2019-09-02 17:24] LABS: CALCIUM 9.3 mg/dL (8.5-10.3)
== END 2019-09-02 14:24 | disposition home or self-care (01) ==
LOC: LAB.S 14:23
PROVIDERS: ATTEND Nurse Practitioner
DX: I10 Essential (primary) hypertension (principal); R60.0 Localized edema
CPT/HCPCS: 36415; 80048

== ENCOUNTER 2019-09-23 11:26 | Outpatient (CLI) | payer MEDICARE, OTHER ==
[2019-09-23 17:19] LABS: BASOPHILS # (AUTO) 0.1 10^3/uL (0.0-0.1); BASOPHILS % (AUTO) 0.7 %; EOSINOPHILS % (AUTO) 0.1 %; HGB - HEMOGLOBIN 9.1 g/dL (12.0-16.0); LYMPHOCYTES # (AUTO) 1.2 10^3/uL (1.5-3.5); LYMPHOCYTES % (AUTO) 17.2 %; MEAN CORPUSCULAR HEMOGLOBIN 27.8 pg (27.0-31.0); MEAN CORPUSCULAR HGB CONC 31.1 g/dL (32.0-36.0); MEAN CORPUSCULAR VOLUME 89.6 fL (81.0-99.0); MEAN PLATELET VOLUME 10.8 fL (7.9-10.8); MONOCYTES # (AUTO) 0.6 10^3/uL (0.0-1.0); MONOCYTES % (AUTO) 8.5 %; NEUTROPHILS # (AUTO) 5.1 10^3/uL (1.5-6.6); NEUTROPHILS % (AUTO) 73.1 %; PLT - PLATELET COUNT 272 10^3/uL (130-450); RED BLOOD COUNT 3.27 10^6/uL (4.20-5.40); RED CELL DISTRIBUTION WIDTH 14.2 % (12.0-15.0); WHITE BLOOD COUNT 6.9 x10^3/uL (4.8-10.8)
[2019-09-23 18:00] LABS: % IRON SATURATION 10 % (20-50); IRON 37 ug/dL (28-170); TOTAL IRON BINDING CAPACITY 388 ug/dL (250-450); TRANSFERRIN 277 mg/dL (192-382)
== END 2019-09-23 11:27 | disposition home or self-care (01) ==
LOC: LAB.S 11:26
PROVIDERS: ATTEND Family Medicine
DX: I48.91 Unspecified atrial fibrillation (principal); D50.9 Iron deficiency anemia, unspecified
CPT/HCPCS: 36415; 83540; 84466; 85025; 85610

== ENCOUNTER 2019-10-13 13:26 | Inpatient (IN) | payer MEDICARE, OTHER ==
[2019-10-13] MEDS ORDERED: NITROGLYCERIN SL 0.4 MG TABLET SL STA (14:04)
--- NOTE | 2019-10-13 14:06 | ED Physician Documentation ---
PD HPI DYSPNEA - Stated complaint Stated Complaint: SOA/ABD PX - Chief complaint Chief Complaint: Resp - History obtained from History obtained from: Patient - History of Present Illness Timing - onset: How many weeks ago (2) Timing - duration: Weeks (1-2) Timing - details: Gradual onset, Still present (worse the past 2-3 days) Inciting event(s): Exercise (She is having trouble breathing with just walking across the room. This has been progressively worse and more significant the last 2 days, With panting dyspnea with even walking to the bathroom and back.) Improved by: Rest, Sitting up Worsened by: Exertion, Laying flat Associated symptoms: No: Fever, Cough Similar symptoms before: Diagnosis (Has had similar symptoms with GI bleeding in the past with melena and did require transfusion. She states subsequent upper a nd lower endoscopy apparently outpatient did not show an acute cause of bleeding. Report from February 2019 upper and lower endoscopies showed some gastritis on the upper scope but no ongoing active bleeding. There was polyp and diverticula on the lower scope but again no acute source.) Recently seen: Not recently seen Review of Systems Constitutional: denies: Fever, Chills, Myalgias Nose: denies: Rhinorrhea / runny nose, Congestion Throat: denies: Sore throat Cardiac: reports: Pedal edema. denies: Chest pain / pressure, Palpitations Respiratory: reports: Dyspnea. denies: Cough, Wheezing GI: reports: Bloody / black stool (black stools for the past week). denies: Vomiting, Diarrhea : denies: Dysuria Neurologic: reports: Generalized weakness. denies: Near syncope Endocrine: reports: Easy bruising / bleeding. denies: Weight loss PD PAST MEDICAL HISTORY - Past Medical History Cardiovascular: Congestive heart failure, Hypertension, High cholesterol, Coronary artery disease, [place], Atrial fibrillation, Valve disorder Respiratory: Asthma, Sleep apnea Neuro: None Endocrine/Autoimmune: Type 2 diabetes GI: GI bleed, Ulcers HOUSE MANAGER: None : Renal insuffiency, Frequency Psych: Anxiety Musculoskeletal: Osteoarthritis, Fibromyalgia, Chronic back pain Derm: None - Past Surgical History Past Surgical History: Yes General: Cholecystectomy /HOUSE MANAGER: Hysterectomy HEENT: Cataracts - Present Medications Home Medications: Ambulatory Orders Medication Instructions Recorded Confirmed Atorvastatin [Lipitor] 40 mg PO DAILY 02/26/18 10/13/19 Warfarin [Coumadin] 5 mg PO QDWARFARIN 02/26/18 10/13/19 lisinopriL [Lisinopril] 10 mg PO BID 02/26/18 10/13/19 Chlorthalidone 0.5 tab PO DAILY 01/28/19 10/13/19 Omeprazole 40 mg PO DAILY 01/28/19 10/13/19 Potassium Chloride [Klor-Con 10] 20 meq PO DAILY 01/28/19 10/13/19 Aspirin [Adult Low Dose Aspirin EC] 81 mg PO DAILY 06/10/19 10/13/19 Diclofenac Epolamine [Flector] 1 each TOP DAILY 06/10/19 10/13/19 Insulin Glargine [Lantus Solostar] 10 unit SUBQ QDBREAKFAST 06/10/19 10/13/19 Magnesium 250 mg PO DAILY 06/10/19 10/13/19 Metoprolol Succinate [Toprol Xl] 25 mg PO DAILY 06/10/19 10/13/19 Ascorbic Acid [Vitamin C] 1,000 mg PO DAILY 10/13/19 10/13/19 Beverly-3/Dha/Epa/Fish Oil [Fish Oil 1 each PO DAILY 10/13/19 10/13/19 1,000 mg Softgel] Oxybutynin Chloride [Ditropan Xl] 10 mg PO DAILY 10/13/19 10/13/19 Terazosin [Hytrin] 2 mg PO QPM 10/13/19 10/13/19 Warfarin [Coumadin] 7.5 mg PO QDWARFARIN 10/13/19 10/13/19 amLODIPine [Norvasc] 5 mg PO BID 10/13/19 10/13/19 - Allergies Allergies/Adverse Reactions: Allergies Allergy/AdvReac Type Severity Reaction Status Date / Time No Known Drug Allergies Allergy Verified 10/13/19 13:55 - Social History Does the pt smoke?: No Smoking Status: Never smoker Does the pt drink ETOH?: No Does the pt have substance abuse?: No - Immunizations Immunizations are current?: Yes - POLST Patient has POLST: No PD ED PE NORMAL - Vitals Vital signs reviewed: Yes - General General: Alert and oriented X 3, Well developed/nourished, Other (Mildly tachypneic without any accessory muscle use.) - HEENT HEENT: Pharynx benign - Neck Neck: Supple, no meningeal sign, No adenopathy - Cardiac Cardiac: RRR, No murmur - Respiratory Respiratory: No: Clear bilaterally (Mostly clear with just faint crackles at the bases.) - Abdomen Abdomen: Soft, Non tender - Back Back: No CVA TTP - Derm Derm: Normal color, Warm and dry - Extremities Extremities: No deformity, No tenderness to palpate, Normal ROM s pain, No calf tenderness / cord, Other (1+ edema in both lower legs without any tenderness) - Neuro Neuro: Alert and oriented X 3, No motor deficit, Normal speech Results - Vitals Vitals: Vital Signs - 24 hr 10/13/19 10/13/19 10/13/19 13:44 14:00 14:30 Temperature 37 C Heart Rate 65 60 55 L Respiratory 26 H 15 21 Rate Blood Pressure 138/81 H 124/47 L 107/47 L O2 Saturation 96 100 100 10/13/19 10/13/19 10/13/19 15:00 15:29 15:40 Temperature 36.8 C 36.9 C Heart Rate 55 L 57 L 55 L Respiratory 19 14 19 Rate Blood Pressure 127/53 L 127/53 L 129/54 L O2 Saturation 100 10/13/19 10/13/19 10/13/19 15:50 16:00 16:30 Temperature 36.7 C Heart Rate 53 L 56 L 52 L Respiratory 15 21 19 Rate Blood Pressure 127/48 L 123/52 L 124/56 L O2 Saturation 100 98 10/13/19 10/13/19 10/13/19 17:00 17:22 17:38 Temperature 37.0 C Heart Rate 54 L 63 68 Respiratory 18 18 29 H Rate Blood Pressure 135/54 H 137/62 H 144/108 H O2 Saturation 99 98 10/13/19 10/13/19 10/13/19 17:46 17:55 18:00 Temperature 36.8 C 36.8 C Heart Rate 62 59 L 58 L Respiratory 23 22 19 Rate Blood Pressure 140/108 H 130/65 143/54 H O2 Saturation 99 10/13/19 10/13/19 18:05 18:30 Temperature 37.0 C Heart Rate 58 L 69 Respiratory 19 28 H Rate Blood Pressure 129/59 L 144/61 H O2 Saturation 99 Oxygen O2 Source Nasal cannula Oxygen Flow Rate 2 - EKG (time done) 14:31 Rate: Rate (enter#) (55) Rhythm: Sinus bradycardia Satin: Normal Intervals: Normal DE, LBBB QRS: Normal Ischemia: Non specific changes. No: ST elevation c/w ischemia, ST depression - Labs Labs: Microbiology 10/13/19 14:54 Occult Blood - Final Stool Laboratory Tests 10/13/19 10/13/19 10/13/19 14:00 14:00 14:00 WBC 8.7 RBC 2.44 L Hgb 6.4 L* Hct 21.5 L MCV 88.1 MCH 26.2 L MCHC 29.8 L RDW 15.3 H Plt Count 251 MPV 10.5 Neut # (Auto) 7.3 H Lymph # (Auto) 0.7 L [place] # (Auto) 0.6 Eos # (Auto) 0.0 Baso # (Auto) 0.0 Absolute Nucleated RBC 0.00 Nucleated RBC % 0.0 Manual Slide Review Indicated Platelet Estimate NORMAL (130-450,000) Platelet Morphology NORMAL APPEARANCE RBC Morph Micro Appear 1+ MICROCYTOSIS PT INR Sodium 133 L Potassium 4.1 Chloride 104 Carbon Dioxide 21 Anion Gap 8.0 BUN 45 H Creatinine 1.2 H Estimated GFR (MDRD) 43 L Glucose 126 H POC Whole Bld Glucose Calcium 8.5 Magnesium 2.0 Total Bilirubin 0.6 AST 25 ALT 40 Alkaline Phosphatase 42 Troponin I High Sens B-Natriuretic Peptide Total Protein 6.2 L Albumin 3.6 Globulin 2.6 Albumin/Globulin Ratio 1.4 Lipase 38 Blood Type A POSITIVE Blood Type Recheck Antibody Screen NEGATIVE Crossmatch IS Only See Detail 10/13/19 10/13/19 10/13/19 14:00 14:00 14:00 WBC RBC Hgb Hct MCV MCH MCHC RDW Plt Count MPV Neut # (Auto) Lymph # (Auto) [place] # (Auto) Eos # (Auto) Baso # (Auto) Absolute Nucleated RBC Nucleated RBC % Manual Slide Review Platelet Estimate Platelet Morphology RBC Morph Micro Appear PT 44.0 H INR 4.2 H Sodium Potassium Chloride Carbon Dioxide Anion Gap BUN Creatinine Estimated GFR (MDRD) Glucose POC Whole Bld Glucose Calcium Magnesium Total Bilirubin AST ALT Alkaline Phosphatase Troponin I High Sens 9.9 B-Natriuretic Peptide 291 H Total Protein Albumin Globulin Albumin/Globulin Ratio Lipase Blood Type Blood Type Recheck Antibody Screen Crossmatch IS Only 10/13/19 10/13/19 14:00 18:12 WBC RBC Hgb Hct MCV MCH MCHC RDW Plt Count MPV Neut # (Auto) Lymph # (Auto) [place] # (Auto) Eos # (Auto) Baso # (Auto) Absolute Nucleated RBC Nucleated RBC % Manual Slide Review Platelet Estimate Platelet Morphology RBC Morph Micro Appear PT INR Sodium Potassium Chloride Carbon Dioxide Anion Gap BUN Creatinine Estimated GFR (MDRD) Glucose POC Whole Bld Glucose 107 H Calcium Magnesium Total Bilirubin AST ALT Alkaline Phosphatase Troponin I High Sens B-Natriuretic Peptide Total Protein Albumin Globulin Albumin/Globulin Ratio Lipase Blood Type Blood Type Recheck A POSITIVE Antibody Screen Crossmatch IS Only PD MEDICAL DECISION MAKING - ED course Complexity details: re-evaluated patient (The patient has had 1 unit transfusion so far. She went to the bathroom in room 9 which is only 10 or 15 feet of walking and was significantly dyspneic still. She is about to get the second bag of fluid. Lung sounds have some very mild crackles and will give her some Lasix as well. We did give vitamin K to reverse her Coumadin. Given the need for transfusion, I was reluctant to give fresh frozen plasma because of the volume load. Her blood pressure is adequate. She is a bit tachypneic. Oxygenation is 96%. However she does have panting dyspnea with just going to the bathroom and back into bed.), considered differential, d/w patient, d/w home sales consultant (I talked with our surgery on-call, Dr. Mcintyre, who felt the patient would certainly need transfusion and lowering of her INR and should likely resolve after that and did not feel that she would necessarily need scoping. I talked with the hospitalist who would want to have surgery backup in case she di d need scoping. Dr. Ceballos check talked with Dr. Chahal directly and was of the impression that he would not be doing any scopes for the patient. As such I will reach out to [facility] and [facility] hospitalist as I feel that the patient is too symptomatic for just transfusion and discharge but observation here does not seem to be an option.) ED course: I talked with [facility] operator tool. There was a Dr. Stacy. She said the she did not feel the patient needed scoping urgently or emergently but would transfuse her and watch the degree of bleeding and reverse the Coumadin. At that point with any ongoing bleeding she may need scoping so would see how she is doing into tomorrow. She did feel the patient would need hospitalization to some degree to really establish the base the improvement. However she did not feel the patient needed to be transferred there acutely for GI intervention. They would be available for backup/transfer if we do feel there is a need for scoping subsequently and our surgeons here are unavailable. Departure - Departure Disposition: ED Place in Observation Clinical Impression: Symptomatic anemia, History of CHF (congestive heart failure), Anticoagulant long-term use, Supratherapeutic INR Dyspnea Qualifiers: Dyspnea type: dyspnea on exertion Qualified Code(s): R06.09 - Other forms of dyspnea GI bleed Qualifiers: GI bleed type/associated pathology: unspecified gastrointestinal hemorrhage type Qualified Code(s): K92.2 - Gastrointestinal hemorrhage, unspecified Condition: Stable Record reviewed to determine appropriate education?: Yes
[2019-10-13 14:25] LABS: BASOPHILS % (AUTO) 0.3 %; EOSINOPHILS % (AUTO) 0.2 %; LYMPHOCYTES # (AUTO) 0.7 10^3/uL (1.5-3.5); LYMPHOCYTES % (AUTO) 8.1 %; MEAN CORPUSCULAR HEMOGLOBIN 26.2 pg (27.0-31.0); MEAN CORPUSCULAR HGB CONC 29.8 g/dL (32.0-36.0); MEAN CORPUSCULAR VOLUME 88.1 fL (81.0-99.0); MEAN PLATELET VOLUME 10.5 fL (7.9-10.8); MONOCYTES # (AUTO) 0.6 10^3/uL (0.0-1.0); MONOCYTES % (AUTO) 6.6 %; NEUTROPHILS # (AUTO) 7.3 10^3/uL (1.5-6.6); NEUTROPHILS % (AUTO) 84.5 %; PLT - PLATELET COUNT 251 10^3/uL (130-450); RED BLOOD COUNT 2.44 10^6/uL (4.20-5.40); RED CELL DISTRIBUTION WIDTH 15.3 % (12.0-15.0); WHITE BLOOD COUNT 8.7 x10^3/uL (4.8-10.8)
[2019-10-13 14:35] LABS: HGB - HEMOGLOBIN 6.4 g/dL (12.0-16.0)
--- NOTE | 2019-10-13 14:38 | XRAY Report ---
Reason: dyspnea Procedure Date: 10/13/2019 Accession Number: [id number] / [id number] Procedure: XR - Chest 1 View X-Ray CPT Code: 30285 Final Report FULL RESULT: EXAM: CHEST RADIOGRAPHY EXAM DATE: 10/13/2019 02:26 PM. CLINICAL HISTORY: Dyspnea. COMPARISON: CHEST 2 VIEW 10/23/2018 2:28 PM. TECHNIQUE: 1 view. FINDINGS: Lungs/Pleura: Blunting of the bilateral costophrenic angles. No focal consolidation. Normal pulmonary vasculature. No pneumothorax. Mediastinum: Mild cardiomegaly. Atherosclerotic consultations within the aortic arch. Other: Osteoarthritis at the glenohumeral joints, left greater than right. Amorphous soft tissue calcification superolateral to the right humeral head, suggesting calcific rotator cuff tendinopathy. IMPRESSION: 1. Mild cardiomegaly. 2. Blunting of the bilateral costophrenic angles, which could represent pleural thickening or trace effusions. RADIA
[2019-10-13 14:39] LABS: ALBUMIN 3.6 g/dL (3.2-5.5); ALBUMIN/GLOBULIN RATIO 1.4 (1.0-2.2); BILIRUBIN,TOTAL 0.6 mg/dL (0.2-1.0); CALCIUM 8.5 mg/dL (8.5-10.3); CREATININE 1.2 mg/dL (0.4-1.0); TOTAL PROTEIN 6.2 g/dL (6.7-8.2)
[2019-10-13 14:43] LABS: INR 4.2 (0.8-1.2)
[2019-10-13 14:49] LABS: PLATELET MORPHOLOGY NORMAL APPEARANCE (NORMAL)
[2019-10-13 14:50] LABS: PLATELET ESTIMATE, MANUAL NORMAL (130-450,000) (NORMAL)
[2019-10-13] MEDS ORDERED: PHYTONADIONE 10 MG/ML AMP PO ONE (16:35)
[2019-10-13] MEDS ORDERED: CHERRY SYRUP 10 ML UDC PO ONE (16:35)
[2019-10-13] MEDS ORDERED: FUROSEMIDE 40 MG/4 ML VIAL IVP STA (17:52)
[2019-10-13] MEDS ORDERED: FAMOTIDINE 20 MG/2 ML VIAL IVP STA (18:26)
--- NOTE | 2019-10-13 19:11 | XRAY Report ---
Reason: chest pain Procedure Date: 10/13/2019 Accession Number: [id number] / [id number] Procedure: XR - Chest 1 View X-Ray CPT Code: 90778 Final Report FULL RESULT: EXAM: CHEST RADIOGRAPHY EXAM DATE: 10/13/2019 06:29 PM. CLINICAL HISTORY: Chest pain. COMPARISON: CHEST 1 VIEW 10/13/2019 2:04 PM CHEST 2 VIEW 10/23/2018 2:28 PM. TECHNIQUE: 1 view. FINDINGS: Lungs/Pleura: There are increasing ill-defined opacities at the right lung base. The right hemidiaphragm contour is partially obscured. The left lung appears unremarkable. Mediastinum: The heart size is normal. There is atherosclerotic calcification of the aortic arch. Other: None. IMPRESSION: 1. Increasing right lower lobe opacity. Possible developing pneumonia or increasing basilar edema. RADIA
--- NOTE | 2019-10-13 19:52 | HISTORY & PHYSICAL EXAMINATION ---
Chief Complaint - Chief Complaint Chief Complaint: dark stool w sob History of Present Illness - Admitted From Admitted From:: ER/Home - [facility] History obtained from: Patient and Dr. Montana - History of Present Illness HPI Comment/Other: And is treated with CoumadinLili is an 84-year-old female who has paroxysmal atrial fibrillation. She has a known history of GI bleed and has been scoped twice with no source of bleeding found other than mild gastritis. With the last endoscopy, she thinks a year and a half ago, she had a severe hypertensive response afterwards. They have been worried because they feel that she should not get another endoscopy because of her heart risk. Nevertheless, she was resumed on her Coumadin for her CHADs score for her A. fib. Over the last few days she is noticed increasing fatigue, dyspnea, lightheadedness. She is absolutely exhausted. Her stool is gotten dark and nearly black. Because of back pain and bilateral hip pain she is relatively sedentary. But she still drives to the food market in [place], drives to her daughter's house and drives to her doctor's appointments. She spends most of her time in a lift chair at home. Just walking from her bedroom to the kitchen will cause severe back pain and hip pain so she has to sit down. Over the last few weeks, she has had increasing dyspnea on exertion. Over the last week she has had epigastric pain every time she tried to get up and do simple things such as fix herself a cup of coffee. The pain in her epigastrium will be so severe it takes her breath away. This is the same epigastric discomfort she felt with her last episode of anemia at [facility] a year and a half ago. With that hospitalization she received transfusions, iron infusion, and the EGD. She was seen in the emergency room and evaluated by Dr. Curry. Her initial vitals showed a temperature of 37, blood pressure 138/81, respirations 26 and she was 96% on room air. Heart rate is in the 60s. Hemoglobin was 6.4 with a hematocrit 21.5. General surgery was consulted who feels that because of her history of previous EGDs she does not need one at this time. We also spoke to [facility] who took care of her before. They feel that if she remained stable with her hemoglobin, no further black stool, we can transfuse her, give her Protonix, and resume her Coumadin for her to be seen in the outpatient setting. However, if she continues to be symptomatic under our care, she will need an EGD during this stay. She is now placed in observation for serial hemoglobin and IV Protonix. History - Past Medical History Cardiovascular: reports: Congestive heart failure (Last echocardiogram June 2018. Left ventricle normal in size. Severe proximal septal thickening noted. Left ventricle hyperdynamic. Ejection fraction 70 to 75%. 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 Right ventricle normal size and function. Mild to moderate mitral regurgitation. There was no hemodynamically significant valvular aortic stenosis. Increased AV velocity likely due to hyperdynamic LV and mild to moderate LVOT obstruction. Compared to previous echoes there is been a decrease in tricuspid regurgitation severity. Decrease in severity of pulmonary hypertension.), Hypertension, High choles terol, Coronary artery disease (noted in her history but she states she does NOT have CAD, no OH, no angina in the past), OH, Atrial fibrillation, Arrhythmia (Seen at [facility] and transferred to [facility] June 2019 when office EKG showed a junctional rhythm. She was transferred from [facility] emergency room to [facility] for pacemaker.), Valve disorder Respiratory: reports: Asthma, Sleep apnea Neuro: reports: None Endocrine/Autoimmune: reports: Type 2 diabetes (Diagnosed in the last 6 months.) GI: reports: GI bleed, Ulcers, Other (diverticulosis) [facility]: reports: None, Other ( all vaginal deliveries) : reports: Renal insuffiency (CKD III), Frequency HEENT: reports: Other (chronic allergic rhinitis for which she took allergy shots up until about 4 years ago) Psych: reports: Anxiety Musculoskeletal: reports: Osteoarthritis (severe in hips but 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 Iron 30 which is borderline low, TIBC 368 normal, iron saturation 8%, transferrin 263 with December 2017 labs. Seen by Rose Mary Chavis, Oncology 01/2019. - Past Surgical History General: reports: Cholecystectomy, Colonoscopy /[facility]: reports: Hysterectomy HEENT: reports: Cataracts (right eye done 02/2018) - Family & Social History Family History Comment/Other: Mom at age 92. She had a series of strokes starting at age 75 but did not succumb until age 89. She also had coronary artery disease. Dad in his 70s of a stroke. 1 sister had a stroke at age 62 and lives in a care home facility until her in her 80s. She was paraplegic. 1 brother smoked like a faint but managed lived to the age of 90 and of old age. 4 daughters. One was born with an autoimmune insufficiency that is letter have a lot of diseases but otherwise all of her daughters are healthy. Living arrangement: At home Living Situation: Alone Social History Notes: She was born in [place]. her childhood sweetheart and they were while he was in the [employer]. They lived all over the [facility] and were living in [place] when he of esophageal cancer 22 years ago. One daughter was to a [employer] man in [place] so she came to [place] to visit her daughter. Fell in love with the area and ended up living in [facility]. Slowly all of her daughters retired to [facility] and they all live nearby. The patient lives independently in her own home. She still bathe herself, feeds herself, does like cooking for herself. She has a housekeeping lady who helps with grocery shopping, gleason gear generator, and what ever task that she has for her. She never smoked. Rarely drank. She has no history of recreational substance abuse. - Substance History Use: Uses substance without health or social issues: NONE Abuse: Recurrent use of substance despite neg consequences: NONE Dependence: Experiences withdrawal or developed tolerances: NONE - POLST Patient has POLST: No POLST Status: DNR Meds/Allgy - Home Medications Home Medications: Ambulatory Orders Medication Instructions Recorded Confirmed Atorvastatin [Lipitor] 40 mg PO DAILY 02/26/18 10/13/19 Warfarin [Coumadin] 5 mg PO QDWARFARIN 02/26/18 10/13/19 lisinopriL [Lisinopril] 10 mg PO BID 02/26/18 10/13/19 Chlorthalidone 0.5 tab PO DAILY 01/28/19 10/13/19 Omeprazole 40 mg PO DAILY 01/28/19 10/13/19 Potassium Chloride [Klor-Con 10] 20 meq PO DAILY 01/28/19 10/13/19 Aspirin [Adult Low Dose Aspirin EC] 81 mg PO DAILY 06/10/19 10/13/19 Diclofenac Epolamine [Flector] 1 each TOP DAILY 06/10/19 10/13/19 Insulin Glargine [Lantus Solostar] 10 unit SUBQ QDBREAKFAST 06/10/19 10/13/19 Magnesium 250 mg PO DAILY 06/10/19 10/13/19 Metoprolol Succinate [Toprol Xl] 25 mg PO DAILY 06/10/19 10/13/19 Ascorbic Acid [Vitamin C] 1,000 mg PO DAILY 10/13/19 10/13/19 Filley-3/Dha/Epa/Fish Oil [Fish Oil 1 each PO DAILY 10/13/19 10/13/19 1,000 mg Softgel] Oxybutynin Chloride [Ditropan Xl] 10 mg PO DAILY 10/13/19 10/13/19 Terazosin [Hytrin] 2 mg PO QPM 10/13/19 10/13/19 Warfarin [Coumadin] 7.5 mg PO QDWARFARIN 10/13/19 10/13/19 amLODIPine [Norvasc] 5 mg PO BID 10/13/19 10/13/19 - Allergies Allergies/Adverse Reactions: Allergies Allergy/AdvReac Type Severity Reaction Status Date / Time No Known Drug Allergies Allergy Verified 10/13/19 13:55 Review of Systems - Constitutional Constitutional: reports: Fatigue, Malaise, Weakness, Poor appetite. denies: Fever, Chills, Diaphoresis, Night sweats - Eyes Eyes: denies: Pain, Irritation, Amaurosis, Blurred vision, Vision loss - Ears, Nose & Throat Ears, Nose & Throat: reports: Hearing loss. denies: Ear pain, Hearing aids, Tinnitus, Vertigo, Nasal pain, Nasal discharge, Nasal obstruction, Nasal congestion, Sore throat, Hoarseness - Cardiovascular Cariovascular: reports: Irregular heart rate, Edema (Chronic. Can get very bad if she spends too much time in her lift chair but at this time her usual state of edema. Not any worse.), Lightheadedness, Exertional dyspnea (Much worse than usual over the last few days.), Decr. exercise tolerance. denies: Palpitations, Orthopnea - Respiratory Respiratory: reports: SOB with exertion. denies: Cough, Sputum production, Wheezing, Snoring, Orthopnea - Gastrointestinal Gastrointestinal: reports: Abdominal pain (Epigastric over the last week. Especially with exertion. Food does not seem to bother her. But she has had quite a bit of loss of appetite.), Black stools, Nausea, Poor appetite. denies: Abdominal distention, Constipation, Diarrhea, Bloody stools, Vomiting, Bile emesis, Bobby blood emesis, Coffee grounds emesis, Reflux/heartburn - Genitourinary Genitourinary: reports: Frequency, Urgency, Incontinence. denies: Dysuria, Hematuria, Flank pain, Nocturia, Urethral discharge - Musculoskeletal Musculoskeletal: reports: Back pain, Muscle aches, Joint pain. denies: Muscle pain, Muscle weakness, Gout - Integumentary Integumentary: denies: Rash, Pruritis, Lesions - Neurological Neurological: reports: General weakness, Dizziness, Memory problems. denies: Focal weakness, Headache, Pre-existing deficit, Abnormal gait, Seizures, Incoordination, Slurred speech - Psychiatric Psychiatric: reports: Anxiety. denies: Depression, Suicidal - Endocrine Endocrine: denies: Polyuria, Polydypsia, Polyphagia - Hematologic/Lymphatic Hematologic/Lymphatic: reports: Anemia, Bruising, Bleeding tendencies Prior Level of Functionality: She still lives alone in her own home. Drives short distances within [place] and to [place]. The biggest difficulty is getting from the kitchen down the ut rage because of severe back pain and hip pain. When she is sitting in a car she feels fine. She dresses herself, feed herself, does her own like cooking. Has a hand booked folder and stitcher. Spends most of her time sitting in her lift chair. She does not use a cane or a walker. Exam - Vital Signs Reviewed Vital Signs: Yes Vital Signs: Vital Signs x48h Temp Pulse Pulse Resp BP BP Pulse Ox 10/13/19 19:35 36.6 C 68 22 144/52 H 10/13/19 19:30 36.6 C 68 22 144/52 H 100 10/13/19 18:30 69 28 H 144/61 H 99 10/13/19 18:05 37.0 C 58 L 19 129/59 L 10/13/19 18:00 58 L 19 143/54 H 99 10/13/19 17:55 36.8 C 59 L 22 130/65 10/13/19 17:46 36.8 C 62 23 140/108 H 10/13/19 17:38 68 29 H 144/108 H 98 10/13/19 17:22 37.0 C 63 18 137/62 H 10/13/19 17:00 54 L 18 135/54 H 99 10/13/19 16:30 52 L 19 124/56 L 98 10/13/19 16:00 56 L 21 123/52 L 100 10/13/19 15:50 36.7 C 53 L 15 127/48 L 10/13/19 15:40 36.9 C 55 L 19 129/54 L 10/13/19 15:29 36.8 C 57 L 14 127/53 L 10/13/19 15:00 55 L 19 127/53 L 100 10/13/19 14:30 55 L 21 107/47 L 100 10/13/19 14:00 60 15 124/47 L 100 10/13/19 13:44 37 C 65 26 H 138/81 H 96 - Physical Exam General Appearance: positive: No acute distress, Alert, Other (Fretful, elderly female, pale, looks stated age and has constant urge to urinate during my discussion and exam. 5 foot 4 inches tall and weighs 90 kg.) Eyes Bilateral: positive: PERRL, EOMI Neck: positive: No JVD. negative: Stiff neck Respiratory: positive: Chest non-tender. negative: Wheezes, Rales, Rhonchi Cardiovascular: positive: Regular rate & rhythm, Systolic murmur. negative: Gallop/S4, Friction rub Peripheral Pulses: positive: 1+ Abdomen: positive: Non-tender, No organomegaly, Nml bowel sounds, No distention Skin: positive: Warm, Dry, Other (Areas of splotchy redness over her mid shins. She says that is chronic discoloration from her leg edema. No skin breakdown. No hemosiderin deposits.) Extremities: positive: Non-tender, Full ROM, Pedal edema Neurologic/Psychiatric: positive: Oriented x3, CN's nml (2-12) (Mildly deaf), Motor nml, Sensation nml Conclusion/Plan - Problem List (1) Dyspnea on minimal exertion Conclusion/Plan: Due to severe anemia and history of subaortic stenosis. Plan: Observation stay Treatment of problem #2 (2) Acute blood loss anemia Conclusion/Plan: Hemoglobin in June was 12. This woman has a history of GI bleeds in the past requiring iron transfusions as well as blood transfusions. Anemia is attributed to history of gastritis on EGD. Plan: Serial hemoglobin Transfuse 1 unit already ordered in the emergency room. She may need 2 units overall. This is an elderly woman with heart disease and would need at least a hemoglobin of 8 as opposed to the normal cutoff of 7. Protonix IV twice daily General surgery consult Get old records from [facility] for previous endoscopies Iron infusion if her old records indicate that that is what they have been doing in the past (3) GI bleed Conclusion/Plan: Gastritis is been the cause in the past. I have asked her if they have considered not anticoagulating her. Her HAS-BLED score is 6 points. Scores greater than 5 are too rare to determine risk but are likely over 10%. Alternatives to anticoagulation should be considered since she is considered a very high risk for major bleeding. She says that to her knowledge, Dr. Rod Boone (her Director Of Officiating) has not discussed this with her. Plan: Request previous records from [facility] for her last GI bleed. See treatment for an acute blood loss anemia Clear liquid diet and n.p.o. after midnight Qualifiers: GI bleed type/associated pathology: gastritis Qualified Code(s): K92.2 - Gastrointestinal hemorrhage, unspecified (4) Supratherapeutic INR Conclusion/Plan: Given vitamin K 5 mg once in the emergency room. Will check INR. (5) HTN (hypertension) Conclusion/Plan: Resume usual home meds. Qualifiers: Hypertension type: essential hypertension Qualified Code(s): I10 - Essential (primary) hypertension (6) CKD (chronic kidney disease), stage III Conclusion/Plan: October 2018 her creatinine was 0.8. August 2019 she was 1.0. Tonight she is 1.1 and 1.2. I suspect this is due to prerenal azotemia from her anemia and subaortic stenosis. Once she is given blood this may resolve. Will repeat tomorrow. (7) Type 2 diabetes mellitus without complication, with assisted current use of insulin pump Conclusion/Plan: Glucose is controlled with the Lantus of 10 units at night. She denies peripheral neuropathy, nephropathy, or retinopathy. Plan: Since she is n.p.o., I will hold off on Lantus. Just do sliding scale low-dose. (8) Do not resuscitate Conclusion/Plan: When asked if she had a CODE STATUS, she states that she does not want intubation, chest compressions, or electrical cardioversion for V. tach. She says that her daughters know this about her. - Lab Results Lab results reviewed: Yes Fish Bones: 10/13/19 14:00 10/13/19 14:00 - EKG Results EKG Interpreted Independently: No Core Measures - Anticipated LOS I expect patient to be DC'd or transferred within 96 hours.: Yes - DVT/VTE - Prophylaxis VTE/DVT Device ordered at admit?: Yes
[2019-10-13 20:30] LABS: BASOPHILS # (AUTO) 0.1 10^3/uL (0.0-0.1); BASOPHILS % (AUTO) 0.6 %; EOSINOPHILS % (AUTO) 0.1 %; HGB - HEMOGLOBIN 9.4 g/dL (12.0-16.0); LYMPHOCYTES # (AUTO) 0.9 10^3/uL (1.5-3.5); LYMPHOCYTES % (AUTO) 10.1 %; MEAN CORPUSCULAR HEMOGLOBIN 27.4 pg (27.0-31.0); MEAN CORPUSCULAR HGB CONC 31.5 g/dL (32.0-36.0); MEAN CORPUSCULAR VOLUME 86.9 fL (81.0-99.0); MEAN PLATELET VOLUME 9.7 fL (7.9-10.8); MONOCYTES # (AUTO) 0.5 10^3/uL (0.0-1.0); MONOCYTES % (AUTO) 5.5 %; NEUTROPHILS # (AUTO) 7.7 10^3/uL (1.5-6.6); NEUTROPHILS % (AUTO) 83.2 %; PLT - PLATELET COUNT 262 10^3/uL (130-450); RED BLOOD COUNT 3.43 10^6/uL (4.20-5.40); RED CELL DISTRIBUTION WIDTH 15.3 % (12.0-15.0); WHITE BLOOD COUNT 9.3 x10^3/uL (4.8-10.8)
[2019-10-13 20:35] LABS: INR 3.8 (0.8-1.2); PT - PROTHROMBIN TIME 39.8 secs (9.9-12.6)
[2019-10-13 20:41] LABS: ALBUMIN 3.9 g/dL (3.2-5.5); ALBUMIN/GLOBULIN RATIO 1.3 (1.0-2.2); BILIRUBIN,TOTAL 1.5 mg/dL (0.2-1.0); CALCIUM 8.8 mg/dL (8.5-10.3); CREATININE 1.1 mg/dL (0.4-1.0); TOTAL PROTEIN 6.8 g/dL (6.7-8.2)
[2019-10-13] MEDS: PANTOPRAZOLE 40 MG VIAL IV SCH (21:53)
[2019-10-14] MEDS: oxyCODONE 5 MG TABLET PO PRN (00:57)
[2019-10-14 01:51] LABS: BASOPHILS # (AUTO) 0.1 10^3/uL (0.0-0.1); BASOPHILS % (AUTO) 0.7 %; EOSINOPHILS % (AUTO) 0.5 %; LYMPHOCYTES # (AUTO) 1.3 10^3/uL (1.5-3.5); LYMPHOCYTES % (AUTO) 15.6 %; MEAN CORPUSCULAR HEMOGLOBIN 27.4 pg (27.0-31.0); MEAN CORPUSCULAR HGB CONC 31.7 g/dL (32.0-36.0); MEAN CORPUSCULAR VOLUME 86.6 fL (81.0-99.0); MONOCYTES # (AUTO) 0.7 10^3/uL (0.0-1.0); MONOCYTES % (AUTO) 8.1 %; NEUTROPHILS # (AUTO) 6.3 10^3/uL (1.5-6.6); NEUTROPHILS % (AUTO) 74.7 %; PLT - PLATELET COUNT 254 10^3/uL (130-450); RED BLOOD COUNT 3.28 10^6/uL (4.20-5.40); RED CELL DISTRIBUTION WIDTH 15.2 % (12.0-15.0); WHITE BLOOD COUNT 8.5 x10^3/uL (4.8-10.8)
[2019-10-14 05:14] LABS: INR 2.5 (0.8-1.2); PT - PROTHROMBIN TIME 26.7 secs (9.9-12.6)
[2019-10-14 05:41] LABS: HB2 TOTAL 9.7 g/dL; HEMOGLOBIN A1C 0.33 g/dL; HEMOGLOBIN A1C % 5.3 % (4.6-6.2)
[2019-10-14 08:08] LABS: BASOPHILS # (AUTO) 0.1 10^3/uL (0.0-0.1); BASOPHILS % (AUTO) 0.7 %; EOSINOPHILS # (AUTO) 0.1 10^3/uL (0.0-0.7); EOSINOPHILS % (AUTO) 0.7 %; HGB - HEMOGLOBIN 8.9 g/dL (12.0-16.0); LYMPHOCYTES # (AUTO) 1.2 10^3/uL (1.5-3.5); LYMPHOCYTES % (AUTO) 13.8 %; MEAN CORPUSCULAR HEMOGLOBIN 27.5 pg (27.0-31.0); MEAN CORPUSCULAR HGB CONC 31.8 g/dL (32.0-36.0); MEAN CORPUSCULAR VOLUME 86.4 fL (81.0-99.0); MEAN PLATELET VOLUME 9.8 fL (7.9-10.8); MONOCYTES # (AUTO) 0.7 10^3/uL (0.0-1.0); MONOCYTES % (AUTO) 8.2 %; NEUTROPHILS # (AUTO) 6.5 10^3/uL (1.5-6.6); PLT - PLATELET COUNT 255 10^3/uL (130-450); RED BLOOD COUNT 3.24 10^6/uL (4.20-5.40); RED CELL DISTRIBUTION WIDTH 15.3 % (12.0-15.0); WHITE BLOOD COUNT 8.5 x10^3/uL (4.8-10.8)
[2019-10-14] MEDS: INSULIN ASPART 300 UNIT/3 ML PEN SUBQ SCH ×4 (08:22→20:23)
[2019-10-14] MEDS: PANTOPRAZOLE 40 MG VIAL IV SCH ×2 (08:24→20:21)
[2019-10-14] MEDS: METOPROLOL SUCCINATE 25 MG TABLET PO SCH (08:25)
[2019-10-14] MEDS: OXYBUTYNIN 5MG TABLET PO SCH ×2 (08:28→20:21)
--- NOTE | 2019-10-14 08:59 | PHARMACY PROGRESS NOTE ---
- Best Possible Medication History Admit Date and Time: 10/13/19 1824 Processed by: Nursing Medication History completed: Yes Patient Interview: Completed As the person ultimately responsible for medication therapy, providers are able to order a medication from an existing home medication list in [facility] via the "Reconcile Routine" prior to Confirmation of that medication by office support. Such practice is discouraged except when the physician, in their clinical judg ment, deems that a medical need exists for a medication without regard to previous use.
[2019-10-14] MEDS ORDERED: DICLOFENAC EPOLAMINE TOP SCH (09:00)
[2019-10-14] MEDS ORDERED: METOPROLOL SUCCINATE 25 MG TABLET PO SCH (09:00)
[2019-10-14] MEDS ORDERED: lisinopriL 5 MG TABLET PO SCH (09:00)
[2019-10-14] MEDS ORDERED: ARNICA TOP PRN (10:45)
[2019-10-14] MEDS: amLODIPine 5 MG TABLET PO SCH ×2 (12:02→20:22)
[2019-10-14] MEDS: polyethylene glycoL 3350 17 GM PACKET PO SCH (12:02)
[2019-10-14] MEDS ORDERED: ZOLPIDEM 5 MG TABLET PO PRN (13:32)
[2019-10-14 13:46] LABS: BASOPHILS # (AUTO) 0.1 10^3/uL (0.0-0.1); BASOPHILS % (AUTO) 0.8 %; EOSINOPHILS % (AUTO) 0.4 %; HGB - HEMOGLOBIN 8.9 g/dL (12.0-16.0); LYMPHOCYTES # (AUTO) 0.9 10^3/uL (1.5-3.5); LYMPHOCYTES % (AUTO) 11.8 %; MEAN CORPUSCULAR HEMOGLOBIN 27.5 pg (27.0-31.0); MEAN CORPUSCULAR HGB CONC 31.7 g/dL (32.0-36.0); MEAN CORPUSCULAR VOLUME 86.7 fL (81.0-99.0); MEAN PLATELET VOLUME 9.8 fL (7.9-10.8); MONOCYTES # (AUTO) 0.6 10^3/uL (0.0-1.0); MONOCYTES % (AUTO) 7.1 %; NEUTROPHILS # (AUTO) 6.2 10^3/uL (1.5-6.6); NEUTROPHILS % (AUTO) 79.4 %; PLT - PLATELET COUNT 258 10^3/uL (130-450); RED BLOOD COUNT 3.24 10^6/uL (4.20-5.40); RED CELL DISTRIBUTION WIDTH 15.1 % (12.0-15.0); WHITE BLOOD COUNT 7.8 x10^3/uL (4.8-10.8)
--- NOTE | 2019-10-14 14:09 | XRAY Report ---
Reason: F/U infiltrate Procedure Date: 10/14/2019 Accession Number: [id number] / [id number] Procedure: XR - Chest 1 View X-Ray CPT Code: 40272 Final Report FULL RESULT: EXAM: CHEST RADIOGRAPHY EXAM DATE: 10/14/2019 01:51 PM. CLINICAL HISTORY: Follow-up infiltrate. COMPARISON: CHEST 1 VIEW 10/13/2019 6:10 PM CHEST 1 VIEW 10/13/2019 2:04 PM CHEST 2 VIEW 10/23/2018 2:28 PM. TECHNIQUE: 1 view. FINDINGS: Lungs/Pleura: There is similar appearance of hazy airspace opacity at the right lung base. There is no streaky opacity at the left lung base. There is blunting of the right costophrenic sulcus, which may represent a small right pleural effusion. Mediastinum: There is stable mild enlargement of the cardiac silhouette. There is mild atherosclerotic calcification of the aortic arch. Other: No acute osseous abnormality. IMPRESSION: 1. Similar hazy right basilar opacity. This may represent pneumonia, aspiration, or asymmetric edema in the appropriate clinical setting. 2. Minimal streaky atelectasis or infiltrate at the left lung base. 3. Possible small right pleural effusion. 4. Stable mild cardiomegaly. RADIA
[2019-10-14] MEDS ORDERED: NITROGLYCERIN SL 0.4 MG TABLET SL PRN (14:42)
--- NOTE | 2019-10-14 17:20 | PROVIDER PROGRESS NOTE ---
Assessment/Plan - Problem List (1) CAP (community acquired pneumonia) Assessment/Plan: There had been a second chest x-ray done in the ER when the ER provider was concerned that the blood transfusion caused CHF since she did complain of more shortness of breath. IV Lasix was given between the 2U of PRBCs. That chest x-ray was read as having a R-sided infiltrate. A repeat chest x-ray today confirmed this. The patient will be made an Inpatient. Will obtain sputum cultures. Follow CBC. Start empiric antibiotics for community-acquired pneumonia: p.o. Zithromax and IV ceftriaxone. This was explained to the patient with the daughter, Kristin, on the phone listening in at the same. (2) GI bleed Qualifiers: GI bleed type/associated pathology: gastritis Assessment/Plan: After 2 units PRBCs, hemoglobin went from 6.4 up to 9 and has been stable at about 8.7. She is felt to be too high risk to undergo repeat EGD (because of concurrent chest pain and ASA of III, and the on-call surgeon had already told me yesterday he would not have her undergo an EGD). Remain off Coumadin, lifelong. Remain off aspirin probably for 4-weeks. Continue to follow her H&H every 6 hours. Transfuse if < 8, because of her cardiac comorbidity. Watch her BMs for heme. Advance diet to see if she tolerates soft food. (3) Acute blood loss anemia Assessment/Plan: Follow H&H every 6 hours. Transfuse if hemoglobin goes under 8. (4) Exertional chest pain Assessment/Plan: Patient vehemently reiterated that all of her recent dyspnea on exertion was accompanied with chest pain, for which she needed to rest and wait for it to pass. She does not have sublingual nitroglycerin to take. There were no c/o chest pain documented in the ER note or admission H&P. The daughter (by phone) confirmed that chest pain with exertion was a current daily problem. The records that were obtained from her Police Lieutenant's office showed that she had a stress test in 2014, walked on the treadmill for 4 min then, and the myocardial perfusion scan was normal. There were no further stress tests. Patient will get troponins done today. Her EKG is already abnormal with LBBB. Echo ordered to check for regional wall motion abnormality, was done and showed no regional wall motion abnormalities. I suspect she has exertional chest pain from her marked anemia on top of demand ischemia from having IHSS. She is not ready for discharge with this newly discovered symptom. Admit to full Inpatient status. Start telemetry. I discussed this with the daughter who called and on the phone at the patient's bedside today, who agreed. (5) Dyspnea on minimal exertion Assessment/Plan: This is probably multifactorial: From her pneumonia, anemia, deconditioning and IHSS. Continue with supplemental O2. Before discharge she will need oximetry walk test to see if she needs a new order for home oxygen (6) IHSS (idiopathic hypertrophic subaortic stenosis) Assessment/Plan: The Echo done in 07/09 showed hyperdynamic LVEF with grade 2 diastolic dysfunction, from her media relations associate records. Echo was done here today that showed normal LVEF, and confirmed IHSS, with a small resting gradient of 8 mmHg but an increased gradient of 50 mmHg after Valsalva. This could be giving her chest pain. The treatment is negative inotropes. 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 Carb controlled diet and ss Insulin coverage ordered. (8) Paroxysmal A-fib Assessment/Plan: She has been in NSR since here. I received records from her admission at [facility] in 07/09 and information by phone from her Police Lieutenant, Dr Monge's office: She has paroxysmal A. fib. She has a history of being in junctional bradycardia when she was on Cardizem and metoprolol, was seen by EP for possible pacemaker but just stopping the Cardizem reverted her to sinus rhythm at a rate that were stable and no pacemaker was implanted. She did have EGD for work-up of previous GI bleeding, only gastritis was found and her Coumadin plus aspirin were resumed at the end of that hospitalization. At this point, her has bled score being 6 with greater than 10% chance of lauren leeding and third episode of gastrointestinal bleed being now, she will no longer be on Coumadin. Aspirin will also be stopped. I informed this to the patient and daughter through the phone at the same time, they understood and agreed. After 4 weeks to let healing occur, potentially restarting just aspirin could be considered. (9) HTN (hypertension) Assessment/Plan: Medications may need to be adjustment for the SS which will also treat hypertension. (10) Carotid stenosis, bilateral Assessment/Plan: This was noted on records obtained today. Continue with management of hypertension, hyperlipidemia and diabetes. Aspirin is currently on hold, will be resumed in the future. (11) CKD (chronic kidney disease), stage III Assessment/Plan: Creat remains abnormal but stable. - Current Meds Current Meds: Current Medications Generic Name Dose Route Start Last Admin Trade Name Freq PRN Reason Stop Dose Admin Amlodipine Besylate 5 mg 10/14/19 11:00 10/14/19 12:02 Norvasc PO 5 mg BID JEFFREY Administration Insulin Aspart 1 - 5 unit 10/14/19 08:00 10/14/19 16:56 Novolog SUBQ Not Given 0800,1200,1700,2100 JEFFREY Protocol Metoprolol Succinate 25 mg 10/14/19 09:00 10/14/19 08:25 Toprol Xl PO 25 mg DAILY JEFFREY Administration Oxybutynin Chloride 5 mg 10/14/19 09:00 10/14/19 08:28 Ditropan PO 5 mg BID JEFFREY Administration Oxycodone HCl 5 mg 10/14/19 00:44 10/14/19 00:57 Roxicodone PO 5 mg Q4HR PRN Administration PAIN Pantoprazole Sodium 40 mg 10/13/19 21:00 10/14/19 08:24 Protonix IV 40 mg BID JEFFREY Administration Polyethylene Glycol 17 gm 10/14/19 12:00 10/14/19 12:02 Miralax PO 17 gm DAILY JEFFREY Administration - Lab Result Fish Bone Diagrams: 10/14/19 13:38 10/13/19 20:22 - Additional Planning My Orders: My Active Orders 10/13/19 18:27 Vital Signs [RC] Q4HR 10/13/19 21:00 Pantoprazole [Protonix] 40 mg IV BID 10/14/19 CUL, RESPIRATORY [RM] Urgent 10/14/19 07:44 Code Status [OTHERS] Routine 10/14/19 09:00 Metoprolol Succinate [Toprol Xl] 25 mg PO DAILY Oxybutynin [Ditropan] 5 mg PO BID 10/14/19 10:45 Patient Own Med [Patient Own Medication] 1 each TOP TID PRN 10/14/19 11:00 amLODIPine [Norvasc] 5 mg PO BID 10/14/19 11:44 Echo Transthoracic Complete [ECHO] Routine 10/14/19 11:51 Telemetry (24 Hour) [RC] Q4HR 10/14/19 12:00 polyethylene glycoL 3350 [Miralax] 17 gm PO DAILY 10/14/19 13:32 Zolpidem [Ambien] 5 mg PO QPM PRN 10/14/19 14:42 Nitroglycerin [Nitrostat] 0.4 mg SL Q5MIN PRN 10/14/19 21:00 Atorvastatin [Lipitor] 40 mg PO QPM lisinopriL [Zestril] 10 mg PO BID 10/14/19 Lunch Carb-controlled Diet [DIET] Subjective - Subjective Patient Reports: Resting Comfortably, Other (No melana, no chest pain when resting. Has a "cough and sneezing all year from allergies".) Objective Vital Signs: Vital Signs - 24 hr 10/13/19 10/13/19 10/13/19 17:22 17:38 17:46 Temperature 37.0 C 36.8 C Heart Rate 63 68 62 Heart Rate [ Monitoring electrodes] Respiratory 18 29 H 23 Rate Blood Pressure 137/62 H 144/108 H 140/108 H Blood Pressure [Left Brachial artery] Blood Pressure [Right Brachial artery] O2 Saturation 98 10/13/19 10/13/19 10/13/19 17:55 18:00 18:05 Temperature 36.8 C 37.0 C Heart Rate 59 L 58 L 58 L Heart Rate [ Monitoring electrodes] Respiratory 22 19 19 Rate Blood Pressure 130/65 143/54 H 129/59 L Blood Pressure [Left Brachial artery] Blood Pressure [Right Brachial artery] O2 Saturation 99 10/13/19 10/13/19 10/13/19 18:30 19:30 19:35 Temperature 36.6 C 36.6 C Heart Rate 69 68 Heart Rate [ 68 Monitoring electrodes] Respiratory 28 H 22 22 Rate Blood Pressure 144/61 H 144/52 H Blood Pressure 144/52 H [Left Brachial artery] Blood Pressure [Right Brachial artery] O2 Saturation 99 100 10/13/19 10/14/19 10/14/19 23:53 05:00 05:45 Temperature 36.6 C 36.4 C L Heart Rate Heart Rate [ 62 66 68 Monitoring electrodes] Respiratory 18 18 18 Rate Blood Pressure Blood Pressure 141/52 H [Left Brachial artery] Blood Pressure 135/56 H [Right Brachial artery] O2 Saturation 98 92 98 10/14/19 10/14/19 10/14/19 07:27 08:20 12:52 Temperature 36.6 C 36.5 C Heart Rate Heart Rate [ 58 L 63 61 Monitoring electrodes] Respiratory 18 16 Rate Blood Pressure Blood Pressure [Left Brachial artery] Blood Pressure 149/49 H 133/48 H [Right Brachial artery] O2 Saturation 99 98 10/14/19 15:35 Temperature 36.7 C Heart Rate Heart Rate [ 62 Monitoring electrodes] Respiratory 19 Rate Blood Pressure Blood Pressure [Left Brachial artery] Blood Pressure 126/96 H [Right Brachial artery] O2 Saturation 97 Oxygen O2 Source Nasal cannula Oxygen Flow Rate 2 I&O (Last 24 Hrs): Intake and Output Totals x24h 10/12/19 10/13/19 10/14/19 23:59 23:59 23:59 Intake Total 1026 820 Output Total 1200 1625 Balance -174 -805 General: Alert, Oriented x3 HEENT: Mucous membr. moist/pink Neck: Supple, No JVD Neuro: Alert, Non Focal Cardiovascular: Regular rate, Other (1/6 murmur at LLSB and at apex) Respiratory: No respiratory distress, Breath sounds nml (at anterior bases) Abdomen: Normal bowel sounds, Soft, Other (Non-tender abd wall hernia) Extremities: No edema - Results Results: Laboratory Results WBC 7.8 x10^3/uL (4.8-10.8) 10/14/19 13:38 RBC 3.24 10^6/uL (4.20-5.40) L 10/14/19 13:38 Hgb 8.9 g/dL (12.0-16.0) L 10/14/19 13:38 Hct 28.1 % (37.0-47.0) L 10/14/19 13:38 MCV 86.7 fL (81.0-99.0) 10/14/19 13:38 MCH 27.5 pg (27.0-31.0) 10/14/19 13:38 MCHC 31.7 g/dL (32.0-36.0) L 10/14/19 13:38 RDW 15.1 % (12.0-15.0) H 10/14/19 13:38 Plt Count 258 10^3/uL (130-450) 10/14/19 13:38 MPV 9.8 fL (7.9-10.8) 10/14/19 13:38 Neut # (Auto) 6.2 10^3/uL (1.5-6.6) 10/14/19 13:38 Lymph # (Auto) 0.9 10^3/uL (1.5-3.5) L 10/14/19 13:38 [place] # (Auto) 0.6 10^3/uL (0.0-1.0) 10/14/19 13:38 Eos # (Auto) 0.0 10^3/uL (0.0-0.7) 10/14/19 13:38 Baso # (Auto) 0.1 10^3/uL (0.0-0.1) 10/14/19 13:38 Absolute Nucleated RBC 0.00 x10^3/uL 10/14/19 13:38 Nucleated RBC % 0.0 /100WBC 10/14/19 13:38 Manual Slide Review Indicated 10/13/19 14:00 Platelet Estimate NORMAL (130-450,000) (NORMAL) 10/13/19 14:00 Platelet Morphology NORMAL APPEARANCE (NORMAL) 10/13/19 14:00 RBC Morph Micro Appear 2+ HYPOCHROMASIA (NORMAL) 1+ MICROCYTOSIS (NORMAL) 10/13/19 14:00 RBC Morph Micro Appear 2+ HYPOCHROMASIA (NORMAL) 1+ MICROCYTOSIS (NORMAL) 10/13/19 14:00 PT 26.7 secs (9.9-12.6) H 10/14/19 04:30 INR 2.5 (0.8-1.2) H 10/14/19 04:30 D-Dimer < 200.0 ng/mL (200.0-255.0) L 10/14/19 13:38 Sodium 137 mmol/L (135-145) 10/13/19 20:22 Potassium 4.1 mmol/L (3.5-5.0) 10/13/19 20:22 Chloride 104 mmol/L (101-111) 10/13/19 20:22 Carbon Dioxide 23 mmol/L (21-32) 10/13/19 20:22 Anion Gap 10.0 (6-13) 10/13/19 20:22 BUN 42 mg/dL (6-20) H 10/13/19 20:22 Creatinine 1.1 mg/dL (0.4-1.0) H 10/13/19 20:22 Estimated GFR (MDRD) 47 (>89) L 10/13/19 20:22 Glucose 139 mg/dL (70-100) H 10/13/19 20:22 POC Whole Bld Glucose 114 mg/dL (70 - 100) H 10/14/19 16:55 Glycated Hemoglobin 5.3 % (4.6-6.2) 10/14/19 04:30 Estim Average Glucose 105 (70-100) H 10/14/19 04:30 Calcium 8.8 mg/dL (8.5-10.3) 10/13/19 20:22 Magnesium 2.0 mg/dL (1.7-2.8) 10/13/19 14:00 Total Bilirubin 1.5 mg/dL (0.2-1.0) H 10/13/19 20:22 AST 24 IU/L (10-42) 10/13/19 20:22 ALT 40 IU/L (10-60) 10/13/19 20:22 Alkaline Phosphatase 46 IU/L (42-121) 10/13/19 20:22 Troponin I High Sens 10.8 ng/L (2.3-14.8) 10/14/19 13:38 B-Natriuretic Peptide 289 pg/mL (5-100) H 10/14/19 13:38 Total Protein 6.8 g/dL (6.7-8.2) 10/13/19 20:22 Albumin 3.9 g/dL (3.2-5.5) 10/13/19 20:22 Globulin 2.9 g/dL (2.1-4.2) 10/13/19 20:22 Albumin/Globulin Ratio 1.3 (1.0-2.2) 10/13/19 20:22 Lipase 38 U/L (22-51) 10/13/19 14:00 Blood Type A POSITIVE 10/13/19 14:00 Blood Type Recheck A POSITIVE 10/13/19 14:00 Antibody Screen NEGATIVE 10/13/19 14:00 Crossmatch IS Only See Detail 10/13/19 14:00 - Procedures Procedures: Procedures REPLACEMENT OF RIGHT LENS WITH SYNTH SUB, PERC APPROACH (02/27/18)
[2019-10-14] MEDS: ATORVASTATIN 40 MG TABLET PO SCH (20:21)
[2019-10-14] MEDS: lisinopriL 20 MG TABLET PO SCH (20:22)
[2019-10-14] MEDS ORDERED: TERAZOSIN 1 MG CAPSULE PO SCH (21:00)
[2019-10-14] MEDS ORDERED: TERAZOSIN 5 MG CAPSULE PO SCH (21:00)
[2019-10-14] MEDS: cefTRIAXone 1 GM in SODIUM CHLORIDE 0.9% MINIBAG 100 ML IV SCH (21:32)
[2019-10-14] MEDS: AZITHROMYCIN INJ 500 MG in SODIUM CHLORIDE 0.9% 250 ML IV SCH (22:19)
[2019-10-15] MEDS ORDERED: BISACODYL 10 MG SUPP PR ONE (01:25)
[2019-10-15] MEDS: INSULIN ASPART 300 UNIT/3 ML PEN SUBQ SCH ×4 (07:31→21:05)
[2019-10-15] MEDS: lisinopriL 20 MG TABLET PO SCH ×2 (08:07→21:23)
[2019-10-15] MEDS: amLODIPine 5 MG TABLET PO SCH ×2 (08:07→21:23)
[2019-10-15] MEDS: PANTOPRAZOLE 40 MG VIAL IV SCH ×2 (08:07→20:52)
[2019-10-15] MEDS: OXYBUTYNIN 5MG TABLET PO SCH ×2 (08:07→21:23)
[2019-10-15] MEDS: METOPROLOL SUCCINATE 25 MG TABLET PO SCH (08:07)
[2019-10-15] MEDS: cefTRIAXone 1 GM in SODIUM CHLORIDE 0.9% MINIBAG 100 ML IV SCH (08:08)
[2019-10-15] MEDS: polyethylene glycoL 3350 17 GM PACKET PO SCH (08:08)
[2019-10-15] MEDS: DOCUSATE SODIUM 250 MG CAPSULE PO SCH (08:14)
[2019-10-15 08:40] LABS: BASOPHILS % (AUTO) 0.5 %; EOSINOPHILS % (AUTO) 0.5 %; HGB - HEMOGLOBIN 9.1 g/dL (12.0-16.0); LYMPHOCYTES # (AUTO) 1.3 10^3/uL (1.5-3.5); LYMPHOCYTES % (AUTO) 16.2 %; MEAN CORPUSCULAR HGB CONC 29.7 g/dL (32.0-36.0); MEAN CORPUSCULAR VOLUME 87.4 fL (81.0-99.0); MEAN PLATELET VOLUME 9.8 fL (7.9-10.8); MONOCYTES # (AUTO) 0.6 10^3/uL (0.0-1.0); MONOCYTES % (AUTO) 6.9 %; NEUTROPHILS % (AUTO) 75.4 %; PLT - PLATELET COUNT 279 10^3/uL (130-450); RED CELL DISTRIBUTION WIDTH 15.5 % (12.0-15.0)
[2019-10-15 08:49] LABS: CALCIUM 8.9 mg/dL (8.5-10.3); CREATININE 1.1 mg/dL (0.4-1.0)
[2019-10-15] MEDS ORDERED: cefTRIAXone 1 GM in SODIUM CHLORIDE 0.9% MINIBAG 100 ML IV SCH (09:00)
[2019-10-15] MEDS ORDERED: AZITHROMYCIN INJ 500 MG in SODIUM CHLORIDE 0.9% 250 ML IV SCH (09:00)
--- NOTE | 2019-10-15 10:32 | PROVIDER PROGRESS NOTE ---
Assessment/Plan - Problem List (1) CAP (community acquired pneumonia) Assessment/Plan: Empiric Ceftriaxone and Zithromax have been started. It is unclear if she produced a sputum sample for culture before antibx started. The patient reported that he daughter has had a dry cough, to whom she is occasionally exposed. Will order nasal swab for COVID and institute empiric isolation for airborne and contact precautions until results of COVID are neg. (2) GI bleed Qualifiers: GI bleed type/associated pathology: gastritis Assessment/Plan: Hgb has been stable since 2U PRBCs transfused. No red BMs, no epigastric pain with meals. No EGD is planned, just empiric H2 blockers and discontinuation of Coumadin lifelong (as this is her 3rd GI bleed) and discontinue daily aspirin for at least 2-4 weeks. Start oral Iron replacement. Will not order iv Iron infusions now as inpatient, this can bve resumed as an outpatient (the scheduled MAC Iron infusion for today was cancelled yesterday). Follow H/H daily. (3) Acute blood loss anemia Assessment/Plan: As above in #2 (4) Exertional chest pain Assessment/Plan: Troponins were neg, EKG shows LBBB, Echo showed no regional wall motionb abnormalities. I reviewed the records from her Diagram Clerk, who felt that her SOB and CP were due to hypertensive heart disease. In fact, she has IHSS by Echo and the anemia created higher demand from having a hypertrophied LV septum. She is not a candidate for stress testing, because with the active infection (CAP) she would not be angio'd currently. She needs neg inotropes for management, and she isd getting Metoprolol but the combination of Cardizem plus metoprolol put her in junctional rhythm 4 mos ago. Will assess her symptoms with activity after 48 hours of antibiotics. Continue supplemental O2 as well. (5) Dyspnea on minimal exertion Assessment/Plan: Similar considerations as for her exertional chest pain above in #5. (6) IHSS (idiopathic hypertrophic subaortic stenosis) Assessment/Plan: This was seen on previous echoes and confirmed by echo done here yesterday: she has a resting LVOT gradient of 8mmHg which increases to 50mmHg with Valsalva. Negative inotropes are the planned management. (7) Type 2 diabetes mellitus without complication, with meterman current use of insulin pump Assessment/Plan: Her A1c was 5.3, indicating excessively tight glu control in anb 84 y/o, who was on home Insulin. Here she is on a carb controlled diet and just sliding scale insulin coverage for fasting glucose checks. (8) Paroxysmal A-fib Assessment/Plan: Her heart rate is controlled on metoprolol. Coumadin has been stopped as of this hospitalization. Aspirin would be recommended for stroke prophylaxis, after 2 to 4 weeks off aspirin in order to allow a potential gastric ulcer or gastritis to heal. (9) HTN (hypertension) Assessment/Plan: BP controlled on current meds and management (10) Carotid stenosis, bilateral Assessment/Plan: Off Aspirin, on home statin (11) CKD (chronic kidney disease), stage III Assessment/Plan: Abnormal but stable - Current Meds Current Meds: Current Medications Generic Name Dose Route Start Last Admin Trade Name Freq PRN Reason Stop Dose Admin Amlodipine Besylate 5 mg 10/14/19 11:00 10/15/19 08:07 Norvasc PO 5 mg BID JEFFREY Administration Atorvastatin Calcium 40 mg 10/14/19 21:00 10/14/19 20:21 Lipitor PO 40 mg QPM JEFFREY Administration Docusate Sodium 250 - 500 mg 10/15/19 09:00 10/15/19 08:14 Colace 250mg Capsule PO 500 mg DAILY JEFFREY Administration Azithromycin 500 mg/ Sodium 250 mls @ 250 mls/hr 10/14/19 21:30 10/14/19 23:31 Chloride IV 10/18/19 22:29 Infused Q24H JEFFREY Infusion Ceftriaxone Sodium 1 gm/ 100 mls @ 200 mls/hr 10/14/19 21:00 10/15/19 08:38 Sodium Chloride IV Infused DAILY JEFFREY Infusion Insulin Aspart 1 - 5 unit 10/14/19 08:00 10/15/19 07:31 Novolog SUBQ Not Given 0800,1200,1700,2100 JEFFREY Protocol Lisinopril 10 mg 10/14/19 21:00 10/15/19 08:07 Zestril PO 10 mg BID JEFFREY Administration Metoprolol Succinate 25 mg 10/14/19 09:00 10/15/19 08:07 Toprol Xl PO 25 mg DAILY JEFFREY Administration Oxybutynin Chloride 5 mg 10/14/19 09:00 10/15/19 08:07 Ditropan PO 5 mg BID JEFFREY Administration Oxycodone HCl 5 mg 10/14/19 00:44 10/14/19 00:57 Roxicodone PO 5 mg Q4HR PRN Administration PAIN Pantoprazole Sodium 40 mg 10/13/19 21:00 10/15/19 08:07 Protonix IV 40 mg BID JEFFREY Administration Polyethylene Glycol 17 gm 10/14/19 12:00 10/15/19 08:08 Miralax PO 17 gm DAILY JEFFREY Administration - Lab Result Fish Bone Diagrams: 10/15/19 08:37 10/15/19 08:37 - Additional Planning My Orders: My Active Orders 10/14/19 10:45 Patient Own Med [Patient Own Medication] 1 each TOP TID PRN 10/14/19 11:00 amLODIPine [Norvasc] 5 mg PO BID 10/14/19 11:44 Echo Transthoracic Complete [ECHO] Routine 10/14/19 11:51 Telemetry (24 Hour) [RC] Q4HR 10/14/19 12:00 polyethylene glycoL 3350 [Miralax] 17 gm PO DAILY 10/14/19 13:32 Zolpidem [Ambien] 5 mg PO QPM PRN 10/14/19 14:42 Nitroglycerin [Nitrostat] 0.4 mg SL Q5MIN PRN 10/14/19 17:57 SCDs [RC] QSHIFT 10/14/19 21:00 Atorvastatin [Lipitor] 40 mg PO QPM lisinopriL [Zestril] 10 mg PO BID 10/14/19 Lunch Carb-controlled Diet [DIET] 10/15/19 COVID-19 QUEST ORDER Routine 10/15/19 08:26 Ferrous Gluconate [Fergon] 324 mg PO DAILYWM 10/15/19 09:00 Docusate Sodium 250Mg Capsule [Colace 250Mg Capsule] 250 - 500 mg PO DAILY 10/15/19 10:19 Isolation [Infection Precautions] [RC] ONCE Subjective - Subjective Patient Reports: Feeling Better Nursing Reports: Other (Voice is more hoarse, has some cough, non-productive. Had a BM that was brown, not black.) Objective Vital Signs: Vital Signs - 24 hr 10/14/19 10/14/19 10/14/19 12:52 15:35 19:47 Temperature 36.5 C 36.7 C Heart Rate [ 61 62 61 Monitoring electrodes] Respiratory 16 19 19 Rate Blood Pressure [Left Brachial artery] Blood Pressure 133/48 H 126/96 H 132/50 H [Right Brachial artery] O2 Saturation 98 97 98 10/14/19 10/15/19 10/15/19 23:40 03:00 07:26 Temperature 36.6 C 36.4 C L 36.5 C Heart Rate [ 68 55 L 62 Monitoring electrodes] Respiratory 20 18 Rate Blood Pressure 122/52 L [Left Brachial artery] Blood Pressure 131/48 H 146/50 H [Right Brachial artery] O2 Saturation 96 98 98 Oxygen O2 Source Nasal cannula Oxygen Flow Rate 2 I&O (Last 24 Hrs): Intake and Output Totals x24h 10/13/19 10/14/19 10/15/19 23:59 23:59 23:59 Intake Total 1026 1470 270 Output Total 1200 1925 Balance -174 -455 270 General: Alert, Oriented x3 HEENT: Mucous membr. moist/pink, Other (Voice is raspy/hoarse) Neck: Supple, No JVD Neuro: Alert, Non Focal Cardiovascular: Other (distant heart sounds) Respiratory: No respiratory distress, Other (R basilar rales) Abdomen: Soft, Other (Obese with pannus) Extremities: No edema - Results Results: Laboratory Results WBC 8.0 x10^3/uL (4.8-10.8) 10/15/19 08:37 RBC 3.50 10^6/uL (4.20-5.40) L 10/15/19 08:37 Hgb 9.1 g/dL (12.0-16.0) L 10/15/19 08:37 Hct 30.6 % (37.0-47.0) L 10/15/19 08:37 MCV 87.4 fL (81.0-99.0) 10/15/19 08:37 MCH 26.0 pg (27.0-31.0) L 10/15/19 08:37 MCHC 29.7 g/dL (32.0-36.0) L 10/15/19 08:37 RDW 15.5 % (12.0-15.0) H 10/15/19 08:37 Plt Count 279 10^3/uL (130-450) 03/26/20 08:37 MPV 9.8 fL (7.9-10.8) 10/15/19 08:37 Neut # (Auto) 6.0 10^3/uL (1.5-6.6) 10/15/19 08:37 Lymph # (Auto) 1.3 10^3/uL (1.5-3.5) L 10/15/19 08:37 [place] # (Auto) 0.6 10^3/uL (0.0-1.0) 10/15/19 08:37 Eos # (Auto) 0.0 10^3/uL (0.0-0.7) 10/15/19 08:37 Baso # (Auto) 0.0 10^3/uL (0.0-0.1) 10/15/19 08:37 Absolute Nucleated RBC 0.00 x10^3/uL 10/15/19 08:37 Nucleated RBC % 0.0 /100WBC 10/15/19 08:37 Manual Slide Review Indicated 10/13/19 14:00 Platelet Estimate NORMAL (130-450,000) (NORMAL) 10/13/19 14:00 Platelet Morphology NORMAL APPEARANCE (NORMAL) 10/13/19 14:00 RBC Morph Micro Appear 2+ HYPOCHROMASIA (NORMAL) 1+ MICROCYTOSIS (NORMAL) 10/13/19 14:00 RBC Morph Micro Appear 2+ HYPOCHROMASIA (NORMAL) 1+ MICROCYTOSIS (NORMAL) 10/13/19 14:00 PT 26.7 secs (9.9-12.6) H 10/14/19 04:30 INR 2.5 (0.8-1.2) H 10/14/19 04:30 D-Dimer < 200.0 ng/mL (200.0-255.0) L 10/14/19 13:38 Sodium 137 mmol/L (135-145) 10/15/19 08:37 Potassium 3.9 mmol/L (3.5-5.0) 10/15/19 08:37 Chloride 102 mmol/L (101-111) 10/15/19 08:37 Carbon Dioxide 25 mmol/L (21-32) 10/15/19 08:37 Anion Gap 10.0 (6-13) 10/15/19 08:37 BUN 41 mg/dL (6-20) H 10/15/19 08:37 Creatinine 1.1 mg/dL (0.4-1.0) H 10/15/19 08:37 Estimated GFR (MDRD) 47 (>89) L 10/15/19 08:37 Glucose 140 mg/dL (70-100) H 10/15/19 08:37 POC Whole Bld Glucose 97 mg/dL (70 - 100) 10/15/19 07:25 Glycated Hemoglobin 5.3 % (4.6-6.2) 10/14/19 04:30 Estim Average Glucose 105 (70-100) H 10/14/19 04:30 Calcium 8.9 mg/dL (8.5-10.3) 10/15/19 08:37 Magnesium 2.0 mg/dL (1.7-2.8) 10/13/19 14:00 Total Bilirubin 1.5 mg/dL (0.2-1.0) H 10/13/19 20:22 AST 24 IU/L (10-42) 10/13/19 20:22 ALT 40 IU/L (10-60) 10/13/19 20:22 Alkaline Phosphatase 46 IU/L (42-121) 10/13/19 20:22 Troponin I High Sens 10.8 ng/L (2.3-14.8) 10/14/19 13:38 B-Natriuretic Peptide 218 pg/mL (5-100) H 10/15/19 08:37 Total Protein 6.8 g/dL (6.7-8.2) 10/13/19 20:22 Albumin 3.9 g/dL (3.2-5.5) 10/13/19 20:22 Globulin 2.9 g/dL (2.1-4.2) 10/13/19 20:22 Albumin/Globulin Ratio 1.3 (1.0-2.2) 10/13/19 20:22 Lipase 38 U/L (22-51) 10/13/19 14:00 Blood Type A POSITIVE 10/13/19 14:00 Blood Type Recheck A POSITIVE 10/13/19 14:00 Antibody Screen NEGATIVE 10/13/19 14:00 Crossmatch IS Only See Detail 10/13/19 14:00 - Procedures Procedures: Procedures REPLACEMENT OF RIGHT LENS WITH SYNTH SUB, PERC APPROACH (02/27/18)
[2019-10-15] MEDS: FERROUS GLUCONATE 324 MG TABLET PO SCH (10:49)
[2019-10-15] MEDS: AZITHROMYCIN INJ 500 MG in SODIUM CHLORIDE 0.9% 250 ML IV SCH (20:55)
[2019-10-15] MEDS: ATORVASTATIN 40 MG TABLET PO SCH (21:23)
[2019-10-16] MEDS: FERROUS GLUCONATE 324 MG TABLET PO SCH (07:59)
[2019-10-16] MEDS: oxyCODONE 5 MG TABLET PO PRN (08:45)
[2019-10-16] MEDS: DOCUSATE SODIUM 250 MG CAPSULE PO SCH (08:45)
[2019-10-16] MEDS: amLODIPine 5 MG TABLET PO SCH ×2 (08:46→21:56)
[2019-10-16] MEDS: lisinopriL 20 MG TABLET PO SCH ×2 (08:46→21:56)
[2019-10-16] MEDS: PANTOPRAZOLE 40 MG VIAL IV SCH ×2 (08:46→21:55)
[2019-10-16] MEDS: cefTRIAXone 1 GM in SODIUM CHLORIDE 0.9% MINIBAG 100 ML IV SCH (08:47)
[2019-10-16] MEDS: OXYBUTYNIN 5MG TABLET PO SCH ×2 (08:52→21:56)
[2019-10-16] MEDS: INSULIN ASPART 300 UNIT/3 ML PEN SUBQ SCH ×4 (08:52→21:17)
[2019-10-16] MEDS: METOPROLOL SUCCINATE 25 MG TABLET PO SCH (08:52)
[2019-10-16] MEDS: polyethylene glycoL 3350 17 GM PACKET PO SCH (08:53)
[2019-10-16 10:10] LABS: BASOPHILS % (AUTO) 0.4 %; EOSINOPHILS % (AUTO) 0.3 %; HGB - HEMOGLOBIN 8.7 g/dL (12.0-16.0); LYMPHOCYTES # (AUTO) 0.9 10^3/uL (1.5-3.5); LYMPHOCYTES % (AUTO) 9.9 %; MEAN CORPUSCULAR HEMOGLOBIN 27.4 pg (27.0-31.0); MEAN CORPUSCULAR HGB CONC 30.6 g/dL (32.0-36.0); MEAN CORPUSCULAR VOLUME 89.3 fL (81.0-99.0); MEAN PLATELET VOLUME 9.9 fL (7.9-10.8); MONOCYTES # (AUTO) 0.9 10^3/uL (0.0-1.0); MONOCYTES % (AUTO) 9.6 %; NEUTROPHILS # (AUTO) 7.3 10^3/uL (1.5-6.6); NEUTROPHILS % (AUTO) 79.3 %; PLT - PLATELET COUNT 253 10^3/uL (130-450); RED BLOOD COUNT 3.18 10^6/uL (4.20-5.40); RED CELL DISTRIBUTION WIDTH 15.1 % (12.0-15.0); WHITE BLOOD COUNT 9.2 x10^3/uL (4.8-10.8)
[2019-10-16 10:35] LABS: CALCIUM 8.4 mg/dL (8.5-10.3)
--- NOTE | 2019-10-16 15:28 | PROVIDER PROGRESS NOTE ---
Assessment/Plan - Problem List (1) CAP (community acquired pneumonia) Assessment/Plan: On antibx empiric. Awaiting sputum cx final results COVID test was sent yesterday and results pending therefore isolation remains in place empirically. Possible DCh tomorrow on oral antibx, awaiting sputum and blood cx results. (2) GI bleed Qualifiers: GI bleed type/associated pathology: gastritis Assessment/Plan: Stable H/H. Off Coumadin. On Protonix bid. The Gen Surgery consult that was ordered on admission by the ER doctor was never accomplished by the MD I spoke to; Dr Mcintyre had listened to the case presented to him on the phone and told me that he would not be recommending an EGD. (3) Acute blood loss anemia Assessment/Plan: Stable H/H since transfused at admission She is now on oral iron replacement and IV Iron infusions can restart after DCh, [place] [facility] The stool guiac was pos but her BMs have turned brown. (4) Exertional chest pain Assessment/Plan: None reported since admission, but she has been minimally mobile. Will start PT to ambulate today. Possible DCh tomorrow. (5) Dyspnea on minimal exertion Assessment/Plan: She is on supplemental O2. She will need an oxygen saturation walk test for poss Home O2 order on the day of DCh. (6) IHSS (idiopathic hypertrophic subaortic stenosis) Assessment/Plan: As per Echo. Neg inotropes and rate control are the plan, and avoiding afterload reducers which increase LV contractility. (7) Type 2 diabetes mellitus without complication, with [facility] current use of insulin pump Assessment/Plan: On cc diet with glu in good range. She was over treated on Lantus Insulin at home with an A1c of 5.3. (8) Paroxysmal A-fib Assessment/Plan: Sinus rhythm since admission. (9) HTN (hypertension) Assessment/Plan: Adequate BP control on current meds and management. (10) Carotid stenosis, bilateral Assessment/Plan: Continue her medical management except off aspirin currently due to GI bleed. (11) CKD (chronic kidney disease), stage III Assessment/Plan: Improved creat since admitted on current meds and management. - Current Meds Current Meds: Current Medications Generic Name Dose Route Start Last Admin Trade Name Freq PRN Reason Stop Dose Admin Amlodipine Besylate 5 mg 10/14/19 11:00 10/16/19 08:46 Norvasc PO 5 mg BID JEFFREY Administration Atorvastatin Calcium 40 mg 10/14/19 21:00 10/15/19 21:23 Lipitor PO 40 mg QPM JEFFREY Administration Docusate Sodium 250 - 500 mg 10/15/19 09:00 10/16/19 08:45 Colace 250mg Capsule PO 250 mg DAILY JEFFREY Administration Ferrous Gluconate 324 mg 10/15/19 08:26 10/16/19 07:59 Fergon PO 324 mg DAILYWM JEFFREY Administration Azithromycin 500 mg/ Sodium 250 mls @ 250 mls/hr 10/14/19 21:30 10/15/19 21:55 Chloride IV 10/18/19 22:29 Infused Q24H JFEFREY Infusion Ceftriaxone Sodium 1 gm/ 100 mls @ 200 mls/hr 10/14/19 21:00 10/16/19 09:17 Sodium Chloride IV Infused DAILY JEFFREY Infusion Insulin Aspart 1 - 5 unit 10/14/19 08:00 10/16/19 12:12 Novolog SUBQ Not Given 0800,1200,1700,2100 [facility] Protocol Lisinopril 10 mg 10/14/19 21:00 10/16/19 08:46 Zestril PO 10 mg BID JEFFREY Administration Metoprolol Succinate 25 mg 10/14/19 09:00 10/16/19 08:52 Toprol Xl PO 25 mg DAILY JEFFREY Administration Oxybutynin Chloride 5 mg 10/14/19 09:00 10/16/19 08:52 Ditropan PO 5 mg BID JEFFREY Administration Oxycodone HCl 5 mg 10/14/19 00:44 10/16/19 08:45 Roxicodone PO 5 mg Q4HR PRN Administration PAIN Pantoprazole Sodium 40 mg 10/13/19 21:00 10/16/19 08:46 Protonix IV 40 mg BID JEFFREY Administration Polyethylene Glycol 17 gm 10/14/19 12:00 10/16/19 08:53 Miralax PO 17 gm DAILY JEFFREY Administration Zolpidem Tartrate 5 mg 10/14/19 13:32 10/15/19 21:23 Ambien PO 5 mg QPM PRN Administration Insomnia - Lab Result Fish Bone Diagrams: 10/16/19 10:00 10/16/19 10:00 - Additional Planning My Orders: My Active Orders 10/16/19 Evaluate and Treat PT [PT] Routine 10/17/19 05:00 BMP - BASIC METABOLIC PANEL [CHEM] DAILYLAB CBC - COMP BLD CT W/AUTO DIFF [HEME] DAILYLAB Subjective - Subjective Patient Reports: Feeling Better Objective Vital Signs: Vital Signs - 24 hr 10/15/19 10/15/19 10/15/19 16:35 21:00 23:50 Temperature 36.5 C 36.6 C 36.7 C Heart Rate [ 53 L 66 Monitoring electrodes] Respiratory 20 19 18 Rate Blood Pressure 147/44 H 147/54 H 140/48 H [Right Brachial artery] O2 Saturation 99 99 97 10/16/19 10/16/19 10/16/19 05:00 07:53 11:00 Temperature 36.7 C 36.7 C 36.5 C Heart Rate [ 69 67 62 Monitoring electrodes] Respiratory 20 18 20 Rate Blood Pressure 146/51 H 167/70 H 150/55 H [Right Brachial artery] O2 Saturation 97 99 99 Oxygen O2 Source Nasal cannula Oxygen Flow Rate 2 I&O (Last 24 Hrs): Intake and Output Totals x24h 10/14/19 10/15/19 10/16/19 23:59 23:59 23:59 Intake Total 1470 1500 580 Output Total 1924 2049 1200 Balance -455 -550 -620 General: Alert, Oriented x3 HEENT: Mucous membr. moist/pink Neuro: Alert, Non Focal Cardiovascular: Other (distant heart sounds) Respiratory: No respiratory distress Abdomen: Other (Obese with pannus) Extremities: Other (Trace edema) - Results Results: Laboratory Results WBC 9.2 x10^3/uL (4.8-10.8) 10/16/19 10:00 RBC 3.18 10^6/uL (4.20-5.40) L 10/16/19 10:00 Hgb 8.7 g/dL (12.0-16.0) L 10/16/19 10:00 Hct 28.4 % (37.0-47.0) L 10/16/19 10:00 MCV 89.3 fL (81.0-99.0) 10/16/19 10:00 MCH 27.4 pg (27.0-31.0) 10/16/19 10:00 MCHC 30.6 g/dL (32.0-36.0) L 10/16/19 10:00 RDW 15.1 % (12.0-15.0) H 10/16/19 10:00 Plt Count 253 10^3/uL (130-450) 10/16/19 10:00 MPV 9.9 fL (7.9-10.8) 10/16/19 10:00 Neut # (Auto) 7.3 10^3/uL (1.5-6.6) H 10/16/19 10:00 Lymph # (Auto) 0.9 10^3/uL (1.5-3.5) L 10/16/19 10:00 [place] # (Auto) 0.9 10^3/uL (0.0-1.0) 10/16/19 10:00 Eos # (Auto) 0.0 10^3/uL (0.0-0.7) 10/16/19 10:00 Baso # (Auto) 0.0 10^3/uL (0.0-0.1) 10/16/19 10:00 Absolute Nucleated RBC 0.00 x10^3/uL 10/16/19 10:00 Nucleated RBC % 0.0 /100WBC 10/16/19 10:00 Manual Slide Review Indicated 10/13/19 14:00 Platelet Estimate NORMAL (130-450,000) (NORMAL) 10/13/19 14:00 Platelet Morphology NORMAL APPEARANCE (NORMAL) 10/13/19 14:00 RBC Morph Micro Appear 2+ HYPOCHROMASIA (NORMAL) 1+ MICROCYTOSIS (NORMAL) 10/13/19 14:00 RBC Morph Micro Appear 2+ HYPOCHROMASIA (NORMAL) 1+ MICROCYTOSIS (NORMAL) 10/13/19 14:00 PT 26.7 secs (9.9-12.6) H 10/14/19 04:30 INR 2.5 (0.8-1.2) H 10/14/19 04:30 D-Dimer < 200.0 ng/mL (200.0-255.0) L 10/14/19 13:38 Sodium 137 mmol/L (135-145) 10/16/19 10:00 Potassium 3.8 mmol/L (3.5-5.0) 10/16/19 10:00 Chloride 102 mmol/L (101-111) 10/16/19 10:00 Carbon Dioxide 24 mmol/L (21-32) 10/16/19 10:00 Anion Gap 11.0 (6-13) 10/16/19 10:00 BUN 29 mg/dL (6-20) H 10/16/19 10:00 Creatinine 1.0 mg/dL (0.4-1.0) 10/16/19 10:00 Estimated GFR (MDRD) 53 (>89) L 10/16/19 10:00 Glucose 151 mg/dL (70-100) H 10/16/19 10:00 POC Whole Bld Glucose 104 mg/dL (70 - 100) H 10/16/19 10:53 Glycated Hemoglobin 5.3 % (4.6-6.2) 10/14/19 04:30 Estim Average Glucose 105 (70-100) H 10/14/19 04:30 Calcium 8.4 mg/dL (8.5-10.3) L 10/16/19 10:00 Magnesium 2.0 mg/dL (1.7-2.8) 10/13/19 14:00 Total Bilirubin 1.5 mg/dL (0.2-1.0) H 10/13/19 20:22 AST 24 IU/L (10-42) 10/13/19 20:22 ALT 40 IU/L (10-60) 10/13/19 20:22 Alkaline Phosphatase 46 IU/L (42-121) 10/13/19 20:22 Troponin I High Sens 10.8 ng/L (2.3-14.8) 10/14/19 13:38 B-Natriuretic Peptide 218 pg/mL (5-100) H 10/15/19 08:37 Total Protein 6.8 g/dL (6.7-8.2) 10/13/19 20:22 Albumin 3.9 g/dL (3.2-5.5) 10/13/19 20:22 Globulin 2.9 g/dL (2.1-4.2) 10/13/19 20:22 Albumin/Globulin Ratio 1.3 (1.0-2.2) 10/13/19 20:22 Lipase 38 U/L (22-51) 10/13/19 14:00 Blood Type A POSITIVE 10/13/19 14:00 Blood Type Recheck A POSITIVE 10/13/19 14:00 Antibody Screen NEGATIVE 10/13/19 14:00 Crossmatch IS Only See Detail 10/13/19 14:00 - Procedures Procedures: Procedures REPLACEMENT OF RIGHT LENS WITH SYNTH SUB, PERC APPROACH (02/27/18)
[2019-10-16] MEDS: ATORVASTATIN 40 MG TABLET PO SCH (21:56)
[2019-10-16] MEDS: AZITHROMYCIN INJ 500 MG in SODIUM CHLORIDE 0.9% 250 ML IV SCH (21:57)
[2019-10-17] MEDS: SODIUM CHLORIDE FLUSH 0.9% 10 ML SYRINGE IVP SCH ×2 (00:12→10:17)
[2019-10-17 05:32] LABS: BASOPHILS # (AUTO) 0.1 10^3/uL (0.0-0.1); BASOPHILS % (AUTO) 0.7 %; EOSINOPHILS # (AUTO) 0.1 10^3/uL (0.0-0.7); EOSINOPHILS % (AUTO) 0.8 %; HGB - HEMOGLOBIN 8.5 g/dL (12.0-16.0); LYMPHOCYTES # (AUTO) 1.4 10^3/uL (1.5-3.5); LYMPHOCYTES % (AUTO) 15.3 %; MEAN CORPUSCULAR HEMOGLOBIN 25.8 pg (27.0-31.0); MEAN CORPUSCULAR HGB CONC 29.6 g/dL (32.0-36.0); MEAN CORPUSCULAR VOLUME 87.2 fL (81.0-99.0); MEAN PLATELET VOLUME 9.6 fL (7.9-10.8); MONOCYTES # (AUTO) 0.9 10^3/uL (0.0-1.0); MONOCYTES % (AUTO) 10.3 %; NEUTROPHILS # (AUTO) 6.4 10^3/uL (1.5-6.6); NEUTROPHILS % (AUTO) 72.3 %; PLT - PLATELET COUNT 267 10^3/uL (130-450); RED BLOOD COUNT 3.29 10^6/uL (4.20-5.40); RED CELL DISTRIBUTION WIDTH 15.3 % (12.0-15.0); WHITE BLOOD COUNT 8.8 x10^3/uL (4.8-10.8)
[2019-10-17 05:44] LABS: CALCIUM 8.5 mg/dL (8.5-10.3); CREATININE 0.9 mg/dL (0.4-1.0)
[2019-10-17] MEDS: PANTOPRAZOLE 40 MG VIAL IV SCH (09:09)
[2019-10-17] MEDS: lisinopriL 20 MG TABLET PO SCH (09:11)
[2019-10-17] MEDS: DOCUSATE SODIUM 250 MG CAPSULE PO SCH (09:11)
[2019-10-17] MEDS: OXYBUTYNIN 5MG TABLET PO SCH (09:11)
[2019-10-17] MEDS: METOPROLOL SUCCINATE 25 MG TABLET PO SCH (09:12)
[2019-10-17] MEDS: FERROUS GLUCONATE 324 MG TABLET PO SCH (09:12)
[2019-10-17] MEDS: amLODIPine 5 MG TABLET PO SCH (09:12)
[2019-10-17] MEDS: cefTRIAXone 1 GM in SODIUM CHLORIDE 0.9% MINIBAG 100 ML IV SCH (09:12)
[2019-10-17] MEDS: polyethylene glycoL 3350 17 GM PACKET PO SCH (09:13)
[2019-10-17] MEDS: INSULIN ASPART 300 UNIT/3 ML PEN SUBQ SCH ×2 (10:17→12:19)
--- NOTE | 2019-10-17 11:40 | Discharge Plan ---
Discharge Plan Problem Reviewed?: Yes Disposition: Home, Self Care Condition: Stable Prescriptions: Amox/Clav 875/125 [Augmentin] 1 each PO BID #8 tablet Ferrous Gluconate 240 mg PO DAILY #30 tablet Lactobacillus Acidophilus [Acidophilus] 1 each PO DAILY #4 capsule Diet: Diabetic Activity Restrictions: Activity as Tolerated Shower Restrictions: No Driving Restrictions: No Assistance Devices: Walker Instruction Topics: Bleeding Gastrointestinal, Pneumonia Tx Health Concerns: You were admitted with shortness of breath due to a severe anemia caused by GI bleeding, worsened by being on a blood thinner. The blood thinner has stopped and should not be resumed. The daily aspirin should not be used for 2-4 weeks. Your PCP will decide when that should be resumed. You received blood transfusions and since that time it appears that the bleeding has stopped, since you now have brown, not black bowel movements and your serum hemoglobin levels have been stable. You are being sent home to take 1 month of Protonix to heal any potential ulcer or gastritis. You are being sent home on oral Iron replacement to take daily. The [place] inf[place] [facility] [place]. You also were found to have a community-acquired pneumonia. Your COVID test was negative. You are being sent home on several more days of oral antibiotics and probiotics. Your oxygen saturations remained stable today even when you walked, therefore you did not qualify to get an order for home oxygen. Remember that an order for an electric wheelchair would come from your primary care provider. You may resume all your other usual medications as prehospitalization, except the Insulin should be stopped, since you had excessively low sugars which is dangerous (it can cause fainting and more serious trouble). Discuss further management with your PCP. You should have a hospital follow-up appointment with your PCP in 1 to 2 weeks to discuss all the above. Plan of Treatment: As above. Your new prescriptions were electronically sent to your [facility] pharmacy. Care Goals: Improvement in symptoms and stabilization are the goals. Assessment: Patient understands and is in agreement with the plan. Additional Instructions or Follow Up instructions: If you have new or worsening symptoms, call your PCP for advice or come to the ER. No Smoking: If you smoke, Please STOP! Call for help. Follow-up with: Jewell Zuniga ARNP [Primary Care Provider] -
--- NOTE | 2019-10-17 11:52 | DISCHARGE SUMMARY ---
Discharge Summary Admit Date: 10/13/19 Discharge Date: 10/17/19 Discharging Provider: Pauline Manuel MD Primary Care Provider: ROBERT Gaxiola Condition at Discharge: Stable Discharge Disposition: 01 Home, Self Care - HPI History of Present Illness: This is an 84 y/o WF treated with Coumadin for paroxysmal atrial fibrillation. She has a known history of GI bleed and has been scoped twice with no source of bleeding found other than mild gastritis. With the last endoscopy, she thinks a year and a half ago, she had a severe hypertensive heart failure complication afterwards. Her providers feel that she should not get another endoscopy because of her heart risk. Nevertheless, she was resumed on her Coumadin for her CHADs score for her A. fib. Over the last few days she is noticed increasing fatigue, dyspnea, lightheadedness. She is absolutely exhausted. Her stool is gotten dark and nearly black. Because of back pain and bilateral hip pain she is relatively sedentary. But she still drives to the food market in [place], drives to her daughter's house and drives to her doctor's appointments. She spends most of her time in a lift chair at home. Just walking from her bedroom to the kitchen will cause severe back pain and hip pain so she has to sit down. Over the last few weeks, she has had increasing dyspnea on exertion. Over the last week she has had epigastric pain every time she tried to get up and do simple things such as fix herself a cup of coffee. The pain in her epigastrium will be so severe it takes her breath away. This is the same epigastric discomfort she felt with her last episode of anemia at [facility] a year and a half ago. With that hospitalization she received transfusions, iron infusion, and the EGD. She was seen in our emergency room. Her initial vitals showed a temperature of 37, blood pressure 138/81, respirations 26 and she was 96% on room air. Heart rate is in the 60s. Hemoglobin was 6.4 with a hematocrit 21.5. General Surgery was consulted who felt that because of her history of previous EGDs she does not need one at this time. We also spoke to [facility] who took care of her before. They feel that if she remained stable with her hemoglobin, had no further black stool, we can transfuse her, treat her with Protonix, she could be seen by GI in the outpatient setting. However, if she continues to be symptomatic under our care, she will need an EGD during this stay and they would accept her in transfer. She was placed (initially) in Observation status for serial hemoglobin checks and IV Protonix treatment. - HOSPITAL COURSE Hospital Course: (1) GI bleed She received 2U of PRBCs with Lasix. The Hgb improved from >> 6.4>> 9.4 and then fluctuated between 8.5 and 9.0. She was taken off Coumadin and advised this to permanently stop as this was her third GI bleed while on anticoagulation. Her daily aspirin was also on hold while here and this was advised to be restarted after hospital follow-up with her PCP. She was on Protonix b.i.d. and discharged on this dose for a month. The Gen Surgery consu lt that was ordered on admission by the ER doctor, was never accomplished by that MD that I spoke to; Dr Mcintyre had listened to the case presented to him by phone and told me that he would not be recommending an EGD. (2) Acute blood loss anemia Stable H/H since transfused at admission (as above). She was put on oral iron replacement and we learned that she already had scheduled IV Iron infusions thru the [facility]. The stool guiac was pos but her BMs turned brown. (3) Exertional chest pain The day after admission, the patient clarified that she had had exertional substernal chest pain at home, not epigastric pain. The daughter by phone also asked what we are doing to evaluate "her chest pain". A new search was undertaken and she had an Echo, troponins and a CXR. The hs-troponin values were unremarkable, the Echo showed IHSS (which had been documented on a previous Echo), but her CXR showed a new infiltrate. She was made an Inpatient to begin on treatment for a pneumonia. (4) CAP (community acquired pneumonia) She was put on empiric Zithromax and Ceftriaxone. She had a COVID test and was placed in isolation empirically. The COVID result was neg. The sputum cx results returned showing mixed solitario. She was discharged to take 4 more days of Augmentin with probiotic. (5) Dyspnea on minimal exertion She was desaturating at admission and was on supplemental O2 while here. On the day of discharge, she underwent an oxygen saturation walk test for possible Home O2 order, and she did not need oxygen, did not qualify with no desaturations. She also had no chest pain with ambulation. (6) IHSS (idiopathic hypertrophic subaortic stenosis) As per Echo. Negative inotropic medications and heart rate control are the overall plan, and avoiding afterload reducers which would increase LV contractility. 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 She was just on a carb-controlled diet while here, with fingerstick glu checks in a good range of 102-120. She was discharged home without any Lantus Insulin ordered and was advised to have further management with her PCP. (8) Paroxysmal A-fib She was in sinus rhythm this entire admission. Her B-hermes was continued. The Coumadin was permanently stopped since bleeding risk outweighed the benefit. (9) HTN (hypertension) Adequate BP control on current meds and management. (10) Carotid stenosis, bilateral Continue her medical management except off aspirin for 2-4 weeks due to this acute GI bleed. (11) CKD (chronic kidney disease), stage III Improved creat since admitted on current meds and management, from 1.2>> 1.1>> 1.0>> 0.9 at the time of discharge. - ALLERGIES Allergies/Adverse Reactions: Allergies Allergy/AdvReac Type Severity Reaction Status Date / Time No Known Drug Allergies Allergy Verified 10/13/19 13:55 - MEDICATIONS Home Medications: Ambulatory Orders Medication Instructions Recorded Confirmed Atorvastatin [Lipitor] 40 mg PO DAILY 02/26/18 10/13/19 lisinopriL [Lisinopril] 10 mg PO BID 02/26/18 10/13/19 Chlorthalidone 12.5 mg PO DAILY 01/28/19 10/14/19 Potassium Chloride [Klor-Con 10] 20 meq PO DAILY 01/28/19 10/13/19 Diclofenac Epolamine [Flector] 1 each TOP DAILY 06/10/19 10/13/19 Magnesium 250 mg PO DAILY 06/10/19 10/13/19 Metoprolol Succinate [Toprol Xl] 25 mg PO DAILY 06/10/19 10/13/19 Ascorbic Acid [Vitamin C] 1,000 mg PO DAILY 10/13/19 10/13/19 [place]-3/Dha/Epa/Fish Oil [Fish Oil 1 each PO DAILY 10/13/19 10/13/19 1,000 mg Softgel] Oxybutynin Chloride [Ditropan Xl] 10 mg PO DAILY 10/13/19 10/13/19 Terazosin [Hytrin] 2 mg PO QPM 10/13/19 10/13/19 amLODIPine [Norvasc] 5 mg PO BID 10/13/19 10/13/19 Zolpidem Tartrate 5 mg PO QPM PRN 10/14/19 10/14/19 Amox/Clav 875/125 [Augmentin] 1 each PO BID #8 tablet 10/17/19 Ferrous Gluconate 240 mg PO DAILY #30 tablet 10/17/19 Lactobacillus Acidophilus 1 each PO DAILY #4 capsule 10/17/19 [Acidophilus] - PHYSICAL EXAM AT DISCHARGE General Appearance: positive: No acute distress, Alert Eyes Bilateral: positive: Normal inspection, EOMI ENT: positive: ENT inspection nml, Other (Hoarseness of voice) Neck: positive: Nml inspection, No JVD Respiratory: positive: Chest non-tender, Breath sounds nml Cardiovascular: positive: Regular rate & rhythm Abdomen: positive: Non-tender, Other (Obese with pannus and a ventral hernia, nontender.) Skin: positive: Pallor Extremities: positive: Non-tender, No pedal edema Neurologic/Psychiatric: positive: Oriented x3 (Non-focal) - LABS Result Diagrams: 10/17/19 05:10 10/17/19 05:10 - DIAGNOSTIC IMAGING Diagnostic Imaging Results: Final report reviewed - FOLLOW UP Follow Up: See PCP in routine hospital follow-up. - TIME SPENT Time Spent in Discharge (Minutes): 60
[2019-10-17 12:36] VITALS: BP 148/55
== END 2019-10-17 13:19 | disposition home or self-care (01) | DRG 194 ==
LOC: ED 13:26 → MS2 18:24 → OBSVTOIN 10-14 14:39
PROVIDERS: ADMIT Internal Medicine; ATTEND Internal Medicine
DX: J18.9 Pneumonia, unspecified organism (principal); D62 Acute posthemorrhagic anemia; K92.2 Gastrointestinal hemorrhage, unspecified; R79.1 Abnormal coagulation profile; I13.0 Hypertensive heart and chronic kidney disease with heart failure and stage 1 through stage 4 chronic kidney disease, or unspecified chronic kidney disease; I50.9 Heart failure, unspecified; I42.1 Obstructive hypertrophic cardiomyopathy; R07.89 Other chest pain; E78.00 Pure hypercholesterolemia, unspecified; I48.0 Paroxysmal atrial fibrillation; I34.0 Nonrheumatic mitral (valve) insufficiency; J45.909 Unspecified asthma, uncomplicated; G47.30 Sleep apnea, unspecified; F41.9 Anxiety disorder, unspecified; I65.23 Occlusion and stenosis of bilateral carotid arteries; I12.9 Hypertensive chronic kidney disease with stage 1 through stage 4 chronic kidney disease, or unspecified chronic kidney disease; N18.3 Chronic kidney disease, stage 3 (moderate); E11.22 Type 2 diabetes mellitus with diabetic chronic kidney disease; I25.10 Atherosclerotic heart disease of native coronary artery without angina pectoris; M79.7 Fibromyalgia; G89.29 Other chronic pain; M54.9 Dorsalgia, unspecified; M25.551 Pain in right hip; M25.552 Pain in left hip; R35.0 Frequency of micturition; R39.15 Urgency of urination; R32 Unspecified urinary incontinence; Z74.09 Other reduced mobility; Z66 Do not resuscitate; Z79.82 Long term (current) use of aspirin; Z79.4 Long term (current) use of insulin; Z79.01 Long term (current) use of anticoagulants; Z87.11 Personal history of peptic ulcer disease
CPT/HCPCS: 36415; 36430; 71045; 80048; 80053; 82270; 83036; 83690; 83735; 83880; 84484; 85025; 85379; 85610; 86850; 86900; 86901; 86920; 87205; 93005; 93306; 94761; 96374; 96375; 96376; 97116; 97161; 99284; 99285; A9270; G0378; P9016; 87070

== ENCOUNTER 2020-02-15 15:57 | Outpatient (CLI) | payer MEDICARE, OTHER | END 2020-02-15 15:58 | disposition short-term general hospital (02) | LOC: EMS 15:57 | PROVIDERS: ATTEND Surgery | DX: R42 Dizziness and giddiness (principal); R09.89 Other specified symptoms and signs involving the circulatory and respiratory systems | CPT/HCPCS: A0425; A0427 ==

== ENCOUNTER 2020-03-11 13:16 | Outpatient (CLI) | payer MEDICARE, OTHER ==
[2020-03-11 15:02] LABS: BASOPHILS # (AUTO) 0.1 10^3/uL (0.0-0.1); BASOPHILS % (AUTO) 0.9 %; EOSINOPHILS # (AUTO) 0.1 10^3/uL (0.0-0.7); EOSINOPHILS % (AUTO) 2.2 %; HGB - HEMOGLOBIN 11.7 g/dL (12.0-16.0); LYMPHOCYTES # (AUTO) 1.6 10^3/uL (1.5-3.5); LYMPHOCYTES % (AUTO) 25.2 %; MEAN CORPUSCULAR HEMOGLOBIN 28.1 pg (27.0-31.0); MEAN CORPUSCULAR HGB CONC 31.2 g/dL (32.0-36.0); MEAN CORPUSCULAR VOLUME 90.1 fL (81.0-99.0); MEAN PLATELET VOLUME 11.1 fL (7.9-10.8); MONOCYTES # (AUTO) 0.5 10^3/uL (0.0-1.0); MONOCYTES % (AUTO) 8.1 %; NEUTROPHILS # (AUTO) 4.1 10^3/uL (1.5-6.6); NEUTROPHILS % (AUTO) 63.1 %; PLT - PLATELET COUNT 221 10^3/uL (130-450); RED BLOOD COUNT 4.16 10^6/uL (4.20-5.40); RED CELL DISTRIBUTION WIDTH 13.9 % (12.0-15.0); WHITE BLOOD COUNT 6.5 x10^3/uL (4.8-10.8)
[2020-03-11 15:23] LABS: CALCIUM 9.5 mg/dL (8.5-10.3); CREATININE 0.9 mg/dL (0.4-1.0)
== END 2020-03-11 13:17 | disposition home or self-care (01) ==
LOC: LAB.S 13:16
PROVIDERS: ATTEND Nurse Practitioner
DX: I10 Essential (primary) hypertension (principal); I48.0 Paroxysmal atrial fibrillation
CPT/HCPCS: 36415; 80048; 85025

== ENCOUNTER 2020-07-25 15:38 | Outpatient (CLI) | payer MEDICARE, OTHER ==
[2020-07-25 20:59] LABS: CALCIUM 9.4 mg/dL (8.5-10.3)
== END 2020-07-25 15:39 | disposition home or self-care (01) ==
LOC: LAB.S 15:38
PROVIDERS: ATTEND Internal Medicine Cardiovascular Disease
DX: I48.0 Paroxysmal atrial fibrillation (principal)
CPT/HCPCS: 36415; 80048

== ENCOUNTER 2021-07-07 08:58 | Outpatient (CLI) | payer MEDICARE, OTHER ==
[2021-07-07 15:33] LABS: BASOPHILS # (AUTO) 0.1 10^3/uL (0.0-0.1); BASOPHILS % (AUTO) 0.7 %; EOSINOPHILS % (AUTO) 0.5 %; HCT - HEMATOCRIT 40.6 % (37.0-47.0); LYMPHOCYTES # (AUTO) 1.8 10^3/uL (1.5-3.5); LYMPHOCYTES % (AUTO) 23.9 %; MEAN CORPUSCULAR VOLUME 90.4 fL (81.0-99.0); MEAN PLATELET VOLUME 10.8 fL (7.9-10.8); MONOCYTES # (AUTO) 0.4 10^3/uL (0.0-1.0); MONOCYTES % (AUTO) 5.2 %; NEUTROPHILS # (AUTO) 5.2 10^3/uL (1.5-6.6); NEUTROPHILS % (AUTO) 69.3 %; PLT - PLATELET COUNT 235 10^3/uL (130-450); RED BLOOD COUNT 4.49 10^6/uL (4.20-5.40); RED CELL DISTRIBUTION WIDTH 13.6 % (12.0-15.0); WHITE BLOOD COUNT 7.5 x10^3/uL (4.8-10.8)
[2021-07-07 15:41] LABS: ALBUMIN 4.3 g/dL (3.2-5.5); ALBUMIN/GLOBULIN RATIO 1.5 (1.0-2.2); ALKALINE PHOSPHATASE 53 IU/L (42-121); ALT ALANINE AMINOTRANSFERASE 18 IU/L (10-60); AST ASPARTATE AMINOTRANSFERASE 19 IU/L (10-42); BILIRUBIN,TOTAL 1.1 mg/dL (0.2-1.0); BUN - BLOOD UREA NITROGEN 29 mg/dL (6-20); CALCIUM 9.8 mg/dL (8.5-10.3); CARBON DIOXIDE - CO2 25 mmol/L (21-32); CHLORIDE 99 mmol/L (101-111); CHOL/HDL RATIO 3.9 (<4.4); CHOLESTEROL 140 mg/dL; GFR - MDRD 53 (>89); GLUCOSE 136 mg/dL (70-100); HDL CHOLESTEROL 36 mg/dL; LDL CHOLESTEROL,CALCULATED 74 mg/dL; LDL/HDL RATIO 2.1 (<4.4); POTASSIUM 4.1 mmol/L (3.5-5.0); SODIUM 136 mmol/L (135-145); TOTAL PROTEIN 7.2 g/dL (6.7-8.2); TRIGLYCERIDES 148 mg/dL; VLDL CHOLESTEROL 30 mg/dL
[2021-07-07 15:58] LABS: PHOSPHORUS 3.8 mg/dL (2.5-4.6)
[2021-07-07 20:38] LABS: ESTIMATED AVERAGE GLUCOSE 148 mg/dL (70-100); HEMOGLOBIN A1c% 6.8 % (4.27-6.07)
== END 2021-07-07 08:59 | disposition home or self-care (01) ==
LOC: LAB.S 08:58
PROVIDERS: ATTEND Internal Medicine Cardiovascular Disease
DX: I12.9 Hypertensive chronic kidney disease with stage 1 through stage 4 chronic kidney disease, or unspecified chronic kidney disease (principal); E11.22 Type 2 diabetes mellitus with diabetic chronic kidney disease; N18.30 Chronic kidney disease, stage 3 unspecified; Z86.2 Personal history of diseases of the blood and blood-forming organs and certain disorders involving the immune mechanism
CPT/HCPCS: 36415; 80053; 80061; 82728; 83036; 83540; 83721; 84100; 84466; 85025

== ENCOUNTER 2022-03-27 11:04 | Outpatient (CLI) | payer MEDICARE, OTHER ==
[2022-03-27 16:57] LABS: BUN - BLOOD UREA NITROGEN 28 mg/dL (6-20); CALCIUM 9.8 mg/dL (8.5-10.3); CARBON DIOXIDE - CO2 26 mmol/L (21-32); CHLORIDE 99 mmol/L (101-111); CHOL/HDL RATIO 4.2 (<4.4); CHOLESTEROL 135 mg/dL; GFR - MDRD 52 (>89); GLUCOSE 134 mg/dL (70-100); HDL CHOLESTEROL 32 mg/dL; LDL CHOLESTEROL,CALCULATED 55 mg/dL; LDL/HDL RATIO 1.7 (<4.4); POTASSIUM 4.3 mmol/L (3.5-5.0); SODIUM 133 mmol/L (135-145); TRIGLYCERIDES 241 mg/dL; VLDL CHOLESTEROL 48 mg/dL
== END 2022-03-27 11:05 | disposition home or self-care (01) ==
LOC: LAB.S 11:04
PROVIDERS: ATTEND Internal Medicine Cardiovascular Disease
DX: E78.5 Hyperlipidemia, unspecified (principal)
CPT/HCPCS: 36415; 80048; 80061; 83721